=== PATIENT | male | born 1980 | race African-American/Black ===

== ENCOUNTER 2021-03-02 08:39 | Outpatient (REF) | payer OTHER, SELFPAY ==
[2021-03-02 11:15] LABS: MANUAL DIFF FLAG NO
[2021-03-02 11:26] LABS: Basophils Percent Auto 0.4 % (0-2); Eosinophils Absolute Auto 0.1 X10*3/uL (0.0-0.4); Eosinophils Percent Auto 2.4 % (0-4); Hematocrit 41.9 % (42-52); Hemoglobin 14.3 g/dl (14.0-18.0); Imm Gran Abs Auto 0.01 X10*3/uL (0.00-0.03); Imm Gran Pct Auto 0.2 % (0.0-0.4); Lymphocytes Absolute Auto 1.5 X10*3/uL (1.2-4.9); Lymphocytes Percent Auto 29.5 % (20-40); Mean Corpuscular HGB Conc 34.1 g/dl (31.0-36.0); Mean Corpuscular Hemoglobin 28.1 pg (27.0-33.0); Mean Corpuscular Volume 82.3 fL (80-98); Mean Platelet Volume 10.7 fL (9.4-12.4); Monocytes Absolute Auto 0.4 X10*3/uL (0.1-1.2); Monocytes Percent Auto 7.8 % (2-11); Neutrophils Percent Auto 59.7 % (45-73); Platelet Count 245 X10*3/uL (160-400); Red Blood Count 5.09 X10*6/uL (4.60-5.80); Red Cell Distribution Width 12.3 % (11.0-16.0)
[2021-03-02 12:25] LABS: Syphilis Screen Nonreactive (Nonreactive)
[2021-03-02 12:30] LABS: TSH reflex Free T4 0.77 uIU/mL (0.32-4.0)
[2021-03-02 12:39] LABS: Alanine Aminotransferase 32 U/L (0-40); Albumin Level 4.1 g/dL (3.5-5.0); Alkaline Phosphatase 59 U/L (39-117); Anion Gap 12 (12-20); Aspartate Amino Transferase 21 U/L (5-37); Bilirubin Total 0.5 mg/dL (0.0-1.0); Blood Urea Nitrogen 8 mg/dL (9-16); Calcium 9.2 mg/dL (8.4-10.2); Carbon Dioxide 29 mmol/L (22-29); Chloride 103 mmol/L (96-108); Cholesterol 128 mg/dL; Estimated Glomerular Filt Rate > 60; Glucose Fasting 157 mg/dL (60-99); HDL Cholesterol 41 mg/dL; LDL Cholesterol Calculated 77 mg/dl; Potassium 4.3 mmol/L (3.3-5.1); Sodium 140 mmol/L (135-145); Total Protein 7.1 g/dL (6.5-8.0); Triglycerides 53 mg/dL
[2021-03-02 12:57] LABS: CT PCR NOT DETECTED (Not Detect.); NG PCR NOT DETECTED (Not Detect.)
[2021-03-04 07:48] LABS: HBc Num1 0.04 S/CO (0.00-0.79); HIV AB/AG Nonreactive (Nonreactive); HIV Num 1 0.09 S/CO (0.00-0.99); Hepatitis B Core Antibody Nonreactive (Nonreactive); ~HepC Num1 0.08 S/CO (0.00-0.79); ~Hepatitis C Antibody Nonreactive (Nonreactive)
[2021-03-04 08:07] LABS: HBS Num1 4.61 mIU/mL (0-7.99); HBsAGNum1 0.22 S/CO (0.00-0.99); Hepatitis B Surface Antigen Negative (Negative); ~Hepatitis B Surface Antibody NONREACTIVE (Nonreactive)
== END 2021-03-02 08:40 | disposition home or self-care (01) ==
LOC: HO.HMGCLDS 08:39
PROVIDERS: PCP Family Medicine; Visit Provider Family Medicine
DX: Z00.00 Encounter for general adult medical examination without abnormal findings (principal); Z11.3 Encounter for screening for infections with a predominantly sexual mode of transmission; Z11.4 Encounter for screening for human immunodeficiency virus [HIV]
CPT/HCPCS: 80053; 80061; 84443; 85025; 86704; 86706; 86780; 86803; 87340; 87389; 87491; 87591

== ENCOUNTER 2021-05-05 10:17 | Outpatient (REF) | payer OTHER, SELFPAY ==
[2021-05-05 15:44] LABS: Folate 11.5 ng/mL (> or = 4.0); Vitamin B12 783 pg/mL (200-900)
== END 2021-05-05 10:18 | disposition home or self-care (01) ==
LOC: HO.WFDLDS 10:17
PROVIDERS: Visit Provider Internal Medicine
DX: E11.65 Type 2 diabetes mellitus with hyperglycemia (principal); L03.039 Cellulitis of unspecified toe
CPT/HCPCS: 36415; 82607; 82746

== ENCOUNTER → 2021-05-18 09:41 | Outpatient (BNVA) | payer OTHER, SELFPAY | PROVIDERS: PCP Family Medicine; Visit Provider Nurse Practitioner Family | DX: E11.40 Type 2 diabetes mellitus with diabetic neuropathy, unspecified (principal) | CPT/HCPCS: 99202 ==

== ENCOUNTER → 2021-06-29 13:40 | Outpatient (BNVA) | payer OTHER, SELFPAY | PROVIDERS: PCP Family Medicine; Visit Provider Nurse Practitioner Family | DX: E11.40 Type 2 diabetes mellitus with diabetic neuropathy, unspecified (principal) | CPT/HCPCS: 99212 ==

== ENCOUNTER → 2021-07-19 09:58 | Outpatient (BNVA) | payer OTHER, SELFPAY | PROVIDERS: PCP Family Medicine; Visit Provider Nurse Practitioner Family ==

== ENCOUNTER 2021-08-26 12:42 | Outpatient (REF) | payer OTHER, SELFPAY ==
[2021-08-26 13:48] LABS: Estimated Average Glucose 131 mg/dL; Hemoglobin A1c % 6.2 %
[2021-08-26 14:22] LABS: Anion Gap 14 (12-20); Blood Urea Nitrogen 8 mg/dL (9-16); Calcium 9.6 mg/dL (8.4-10.2); Carbon Dioxide 30 mmol/L (22-29); Chloride 101 mmol/L (96-108); Estimated Glomerular Filt Rate > 60; Glucose Random 161 mg/dL (60-115); Potassium 4.5 mmol/L (3.3-5.1); Sodium 140 mmol/L (135-145)
[2021-08-26 14:29] LABS: Microalbum/Creatinine Ratio Ur 5.6 ug/mg cr
== END 2021-08-26 12:43 | disposition home or self-care (01) ==
LOC: HO.WFDLDS 12:42
PROVIDERS: Visit Provider Family Medicine
DX: Z00.00 Encounter for general adult medical examination without abnormal findings (principal); E11.65 Type 2 diabetes mellitus with hyperglycemia; I10 Essential (primary) hypertension
CPT/HCPCS: 36415; 80048; 82043; 83036

== ENCOUNTER 2021-12-15 12:47 | Outpatient (REF) | payer OTHER, SELFPAY ==
[2021-12-15 14:06] LABS: Estimated Average Glucose 160 mg/dL; Hemoglobin A1c % 7.2 %
== END 2021-12-15 12:48 | disposition home or self-care (01) ==
LOC: HO.WFDLDS 12:47
PROVIDERS: Visit Provider Hospitalist
DX: E11.9 Type 2 diabetes mellitus without complications (principal)
CPT/HCPCS: 36415; 83036

== ENCOUNTER 2022-09-05 08:38 | Outpatient (REF) | payer OTHER, SELFPAY ==
[2022-09-05 11:41] LABS: Hemoglobin 14.3 g/dl (14.0-18.0); Mean Corpuscular Hemoglobin 28.5 pg (27.0-33.0); Mean Corpuscular Volume 83.7 fL (80.0-98.0); Mean Platelet Volume 10.9 fL (9.4-12.4); Platelet Count 244 X10*3/uL (160-400); Red Blood Count 5.02 X10*6/uL (4.60-5.80); White Blood Count 6.4 X10*3/uL (4.8-10.8)
[2022-09-05 12:02] LABS: Estimated Average Glucose 206 mg/dL; Hemoglobin A1c % 8.8 %
[2022-09-05 12:14] LABS: Alanine Aminotransferase 40 U/L (0-40); Albumin Level 4.3 g/dL (3.5-5.0); Alkaline Phosphatase 87 U/L (39-117); Anion Gap 15 (12-20); Aspartate Amino Transferase 24 U/L (5-37); Bilirubin Total 0.3 mg/dL (0.0-1.0); Blood Urea Nitrogen 12 mg/dL (9-16); Calcium 9.1 mg/dL (8.4-10.2); Carbon Dioxide 28 mmol/L (22-29); Chloride 100 mmol/L (96-108); Cholesterol 167 mg/dL; Estimated Glomerular Filt Rate > 60; Glucose Fasting 201 mg/dL (60-99); HDL Cholesterol 42 mg/dL; LDL Cholesterol Calculated 110 mg/dl; Potassium 4.4 mmol/L (3.3-5.1); Sodium 139 mmol/L (135-145); Total Protein 7.4 g/dL (6.5-8.0); Triglycerides 77 mg/dL
[2022-09-05 12:19] LABS: TSH reflex Free T4 2.11 uIU/mL (0.32-4.0)
== END 2022-09-05 08:39 | disposition home or self-care (01) ==
LOC: HO.HMGCLDS 08:38
PROVIDERS: PCP Nurse Practitioner Family; Visit Provider Hospitalist
DX: Z00.00 Encounter for general adult medical examination without abnormal findings (principal); E11.65 Type 2 diabetes mellitus with hyperglycemia
CPT/HCPCS: 36415; 80053; 80061; 83036; 84443; 85027

== ENCOUNTER 2023-04-06 09:15 | Outpatient (REF) | payer OTHER, SELFPAY ==
[2023-04-06 12:26] LABS: Estimated Average Glucose 166 mg/dL; Hemoglobin A1c % 7.4 %
[2023-04-06 12:36] LABS: Creatinine Urine 198.21 mg/dL; Microalbum/Creatinine Ratio Ur 4.5 ug/mg cr
== END 2023-04-06 09:16 | disposition home or self-care (01) ==
LOC: HO.WFDLDS 09:15
PROVIDERS: Visit Provider Nurse Practitioner Family
DX: E11.9 Type 2 diabetes mellitus without complications (principal)
CPT/HCPCS: 36415; 82043; 83036

== ENCOUNTER 2023-06-08 12:50 | Outpatient (AMB) | payer OTHER, SELFPAY ==
--- NOTE | 2023-06-08 12:52 | MHC.OFFWIV ---
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 He states he injured his back in the past. Patient Tobacco Use Status: Never used Tobacco Allergies No Known Allergies Allergy (Verified 06/08/23 12:54) Do you need a note to return to daycare/school/sports/work: Yes HPI HPI Comments History of Present Illness Details 42-year-old male who presents to the office today for sick visit. 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 He reports the pain is bilateral and radiates around to the front. Patient denies any numbness/weakness/paresthesias or pain radiating into his lower extremities. He denies any fevers or chills. He denies any urinary/bowel incontinence or retention. He denies any saddle anesthesias. 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 Current occupational exposures/hazards: No Review of Systems Const All systems reviewed & are unremarkable except as noted in HPI and below Reports no additional complaints Eyes Reports no additional complaints ENT Reports no additional complaints Card Reports no additional complaints Resp Reports no additional complaints GI Reports no additional complaints Reports no additional complaints Musc Reports back pain Skin/Breast Reports system reviewed and no additional complaints, except as documented Neuro Reports no additional complaints Psych Reports no additional complaints Endo Reports no additional complaints Catracho/Lymph Reports no additional complaints Aller/Immun Reports no additional complaints Physical Exam Vital Signs: Last Vital Signs Pulse 80 06/08/23 12:56 BP 130/88 06/08/23 12:56 Pulse Ox 98 06/08/23 12:56 Oxygen Delivery Method Room Air 06/08/23 12:56 Const General: cooperative, healthy appearing, comfortable, no acute distress, well developed, alert, awake and Physically active Orientation/consciousness: patient oriented x3 HEENT Head: Yes normal to inspection Ears: hearing grossly normal bilaterally General nose exam: Normal external nose present Face and sinus: Yes normal facial exam Resp Effort & Inspection: normal respiratory effort, able to speak in complete sentences and no respiratory distress Auscultation: clear to auscultation bilaterally Cardio Rate: regular rate Rhythm: regular rhythm Heart sounds: no gallops, no murmurs and no rubs Back/Spine/Pelvis Other: Tenderness to palpation of bilateral sacroiliac joints. Negative straight leg raise bilaterally. Palpable muscle spasms of paraspinal musculature bilaterally. Skin General skin exam: no rashes or lesions noted Neuro General: patient oriented x3 Cranial nerves: Yes CN's II-XII intact bilaterally Cognition (Neuro): normal cognition Gait exam (Neuro): Normal gait present Motor exam (neuro): 5/5 motor strength present throughout Assessment & Plan Assessment & Plan (1) Lumbosacral pain: Code(s): M54.50 - Low back pain, unspecified Plan This is a 42-year-old male who presents to the office today with low back pain following a twisting injury. History and physical most consistent with a lumbosacral sprain/strain versus sacroiliitis. No red flag or radicular symptoms to suggest cauda equina syndrome or radiculopathy. Recommended rest/activity modification, PO Tylenol/Advil, [id number] lidocaine patches, and PO methocarbamol 500 mg 3 times daily as needed for muscle spasms. Patient advised follow-up here or go directly to the emergency room for any concerning symptoms. Patient verbalizes understanding and he is in agreement with the plan. Medications: New methocarbamol 500 mg PO TID PRN 10 tabs 0RF muscle spasm Coding Level of Care Code New Pt Level 3 (43585) Diagnoses Lumbosacral pain M54.50
[2023-06-08 12:56] VITALS: BP 130/88; PULSE 80; O2SAT 98
== END 2023-06-08 13:58 | disposition home or self-care (01) ==
PROVIDERS: PCP Nurse Practitioner Family; Visit Provider Physician Assistant Medical
DX: M54.50 Low back pain, unspecified (principal)
CPT/HCPCS: 99203

== ENCOUNTER 2023-07-02 09:12 | Outpatient (AMB) | payer OTHER, SELFPAY ==
--- NOTE | 2023-07-02 10:22 | AM.OFFWIN_ITS ---
Intake Vital Signs 07/02/23 10:24 Weight 243 lb BP 120/90 H Blood Pressure Location Rt brachial Position Sitting Pulse 88 Pulse Source Pulse Oximeter Pulse Oximetry (%) 99 Oxygen Delivery Method Room Air Intake Visit Reasons: EP, Scalp discomfort Intake Note: Patient here for bumps on scalp for about 2 weeks and he thought they would go away but yesterday they opened up and started to bleed. Patient Tobacco Use Status: Never used Tobacco Allergies No Known Allergies Allergy (Verified 07/02/23 11:18) Medication List - Last Reconciled 07/02/23 by Yadiel Cadet MD atorvastatin 20 mg PO BEDTIME 30 days blood pressure test kit-large As directed blood sugar diagnostic (FreeStyle Lite Strips) DX: E11.9, test blood sugar once a day in AM before eating, 90 days blood-glucose meter (FreeStyle Lite Meter kit) DX: E11.9, test blood sugar once a day in AM before eating, duration 999 days duloxetine 60 mg PO DAILY 30 days glipizide 5 mg PO BID lancets (FreeStyle Lancets) As directed lancets (Assure Jose Plus) DX: E11.65. Use once a day to test blood sugars, 90 day supply lisinopril 10 mg PO DAILY 30 days metformin 500 mg PO BID 90 days methocarbamol 500 mg PO TID PRN Do you need a note to return to daycare/school/sports/work: No HPI EP, Scalp discomfort HPI Details 42-year-old male presents to the office for a sick visit. Patient is complaining of irritation in his scalp. Symptoms started after he started using a razor. 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 A few nodules seen at the base of the hair follicles. Assessment & Plan Assessment & Plan (1) Cellulitis: Code(s): L03.90 - Cellulitis, unspecified Plan: Antibiotics called in. If Symptoms do not improve to follow-up here. Coding Level of Care Code Est Pt Level 3 (05267) Diagnoses Cellulitis L03.90
[2023-07-02 10:24] VITALS: BP 120/90; PULSE 88; O2SAT 99
== END 2023-07-02 12:03 | disposition home or self-care (01) ==
PROVIDERS: PCP Nurse Practitioner Family; Visit Provider Internal Medicine
DX: L03.90 Cellulitis, unspecified (principal)
CPT/HCPCS: 99213

== ENCOUNTER 2023-08-14 08:45 | Outpatient (AMB) | payer OTHER, SELFPAY ==
[2023-08-14 09:02] VITALS: BP 124/70; PULSE 84; RESP 12; TEMP 36.2; O2SAT 99; BMI 40.3
--- NOTE | 2023-08-14 09:02 | A.OFFPC_ITS ---
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 Use once a day to test blood sugars, 90 day supply lancets (FreeStyle Lancets) As directed lisinopril 10 mg PO DAILY metformin 500 mg PO BID 90 days Tobacco use date assessed: 10/05/22 Dental Screening Dental Screen Date: 08/14/23 Did you have a dental visit in the last 12 months?: No Did you have a dental problem in the last 6 months where you did not have access to dental care?: No Was dental information given to patient?: Patient has dentist HPI HPI Comments History of Present Illness Details 42-year-old male presents for hypertensi on and diabetes follow-up. He is on lisinopril, metformin, and glipizide which he notes he has been taking as prescribed. He states his random glucose has in the 120s and 130s; he has not been regularly checking his fasting glucose. His FBG was 120 this morning. He notes he has been making healthy dietary choices. He has been working a lot and has not had time to exercise. No acute symptoms at this time. His LDL was 110 at his last visit in March. Atorvastatin was ordered. Lipid panel was also ordered for. He was encouraged to get fasting blood work done before his next visit. However, he did not get blood work done. He notes he has been followed by Ophthalmology for eye exam every 6 months. His last eye exam was 01/2023. He notes he will call to schedule an appointment for this next visit. [facility] Medical History Paronychia Retinal hemorrhage Neuropathy in diabetes Diabetes type 2, uncontrolled Obesity, Class II, BMI 35-39.9 Surgical History No history of previous surgery Family History Father HIV (human immunodeficiency virus infection) Mother Cervical cancer HIV (human immunodeficiency virus infection) Social History Housing: House Alcohol intake: never Patient Tobacco Use Status: Never used Tobacco e-Cigarette/Vaping Use: Never Used service: No Current occupational status: employed Current occupation: [employer] Current occupational exposures/hazards: No Cognitive needs: No Hearing needs: No Vision needs: No Questionnaire Thrive Questionnaire Date Thrive assessed: 10/05/22 Review of Systems Const Details: Const Denies chills, Denies fatigue, Denies fever(s), Denies headache(s) and Denies weakness ENT Denies dizziness and Denies headache(s) Card Denies chest pain, Denies lightheadedness, Denies dyspnea and Denies other (Palpitations) Resp Denies cough, Denies dyspnea, Denies wheezing and Denies other ( shortness of breath) GI Denies abdominal pain, Denies melena, Denies hematochezia, Denies change in bowel habits, Denies dyspepsia and Denies nausea Denies hematuria and Denies dysuria Musc Denies abnormal gait, Denies myalgias, Denies arthralgias, Denies numbness and Denies tingling Skin/Breast Denies rash, Denies unusual bruising and Denies wounds Neuro Denies abnormal gait, Denies dizziness, Denies headache(s), Denies memory loss, Denies numbness, Denies Sensory deficit (Neuro), Denies tingling and Denies weakness Psych Denies anxiety, Denies depression, Denies memory loss Endo Denies cold intolerance, Denies fatigue, Denies heat intolerance, Denies polydipsia and Denies polyuria Aller/Immun Denies wheezing Physical exam (Primary Care) Vital Signs: Last Vital Signs Temp 97.2 F 08/14/23 09:02 Pulse 84 08/14/23 09:02 Resp 12 08/14/23 09:02 BP 124/70 08/14/23 09:02 Pulse Ox 99 08/14/23 09:02 Oxygen Delivery Method Room Air 08/14/23 09:02 BMI result Body Mass Index 40.3 Tobacco/Smoking Status: Tobacco use Status Tobacco use date assessed 10/05/22 08/14/23 09:12 Patient Tobacco Use Status Never used Tobacco 08/14/23 09:12 e-Cigarette/Vaping Use Never Used 08/14/23 09:12 Thrive Assessment: Date of Thrive Assessment Date Thrive assessed 10/05/22 08/14/23 09:12 Const Other: General: no acute distress and well developed Nutritional Appearance: well nourished Orientation/consciousness: patient oriented x3 HENMT Head: Yes normocephalic and Yes atraumatic Eyes General: appearance normal, both eyes and all related structures Pupils: Equal, round and reactive pupils present EOM: EOMs intact bilaterally Resp Effort & Inspection: normal respiratory effort Auscultation: clear to auscultation bilaterally Cardio Rate: regular rate Rhythm: regular rhythm Heart sounds: S1 normal heart sound present, S2 normal heart sound present, no gallops, no murmurs and no rubs GI Palpation (GI): No Abdominal aortic bruit present, Soft to palpation, nontender, No hepatosplenomegaly present and No Rebound tenderness present Auscultation: normal bowel sounds General: Yes no CVA tenderness Back/Spine/Pelvis Back: no CVA tenderness Cervical Spine: cervical ROM normal and No Cervical spine tenderness Thoracic/Lumbar Spine: thoraco-lumbar ROM normal, No pain with thoraco-lumbar ROM, No thoracic spinal tenderness and No lumbar spinal tenderness Extrem General: Yes normal to inspection, No edema and No calf tenderness Skin General: warm and dry. Normal skin color. Normal skin turgor Lesions: no lesions Rashes: no rashes Trauma: no lacerations or abrasions Wounds: no wounds Nails: normal Neuro General: patient oriented x3, gait normal and no focal neuro deficit Cranial nerves: Yes Equal, round and reactive pupils present Cognition (Neuro): normal cognition Gait exam (Neuro): Normal gait present Sensory Exam: No Sensory deficit (Neuro) Psych Appearance: grossly normal Affect: normal affect Attitude: cooperative Thought process: Normal thought process present Results AMB Hemoglobin A1c AMB Hemoglobin A1c 8.0 % Last Edit by Jenny Parra MA on 08/14/23 09:19 Results Reviewed Results Reviewed: Laboratory Last Values Hgb A1c (Clinic) 8.0 % (4.0-6.0) H 08/14/23 09:18 Assessment and Plan Assessment & Plan (1) Hypertension: Code(s): I10 - Essential (primary) hypertension Qualifiers: Hypertension type: primary hypertension Qualified Code(s): I10 - Essential (primary) hypertension Plan: Blood pressure is 124/70, within goal of less than 130/80 Continue with current treatment regimen Low-sodium diet encouraged Follow-up in 3 months or return sooner with symptoms or concerns Verbalized understanding and agreed with treatment plan. (2) Diabetes type 2, uncontrolled: Code(s): E11.65 - Type 2 diabetes mellitus with hyperglycemia Plan: A1c today is 8.0%, above goal of less than 7.0%. Previous A1c was 7.4% He admits to taking his medications as prescribed. Denies exercise Will increase metformin to 150 mg twice a day. Take as prescribed Continue to take glipizide as prescribed ADA diet and routine exercise encouraged Referred to dietitian/gluer machine operator Advised to get lipid panel blood work done as soon as possible Follow-up in 3 months or return sooner with symptoms or concerns Verbalized understanding and agreed with treatment plan. (3) Morbid obesity with BMI of 40.0-44.9, adult: Code(s): E66.01 - Morbid (severe) obesity due to excess calories; Z68.41 - Body mass index [BMI] 40.0-44.9, adult Plan: He has gained 14 lb since his last visit 4 months ago. His his current BMI is 40.3 Routine exercise encouraged Referred to gluer machine operator/dietitian Follow-up with symptoms or concerns Verbalized understanding and agreed with treatment plan. Orders: Referrals Nutrition/Dietitian Referral E11.65 - Type 2 diabetes mellitus with hyperglycemia, E66.01 - Morbid (severe) obesity due to excess calories, Z68.41 - Body mass index [BMI] 40.0-44.9, adult Medications: New lisinopril 10 mg PO DAILY 90 tabs 1RF 90 days metformin 850 mg PO BID 180 tabs 3RF 90 days Changed From lancets (FreeStyle Lancets) As directed 100 ea 3RF DX: E11.9, test blood sugar once a day, 90 day E11.9 - Type 2 diabetes mellitus without complications To lancets (FreeStyle Lancets) As directed E11.9 - Type 2 diabetes mellitus without complications Refilled duloxetine 60 mg PO DAILY 30 caps 3RF 30 days glipizide 5 mg PO BID 180 tabs 3RF Discontinued metformin Discontinued Reason: Doctor's Order 500 mg PO BID 180 tabs 2RF 90 days E11.65 - Type 2 diabetes mellitus with hyperglycemia Coding Level of Care Code Est Pt Level 3 (85257) Diagnoses Primary hypertension I10 Hypertension type: primary hypertension Diabetes type 2, uncontrolled E11.65 Morbid obesity with BMI of 40.0-44.9, adult E66.01; Z68.41
== END 2023-08-14 09:36 | disposition home or self-care (01) ==
PROVIDERS: PCP Nurse Practitioner Family; Visit Provider Nurse Practitioner Family
DX: I10 Essential (primary) hypertension (principal); E11.65 Type 2 diabetes mellitus with hyperglycemia; E66.01 Morbid (severe) obesity due to excess calories; Z68.41 Body mass index [BMI] 40.0-44.9, adult
CPT/HCPCS: 99213

== ENCOUNTER 2023-12-31 07:35 | Outpatient (AMB) | payer OTHER, SELFPAY ==
--- NOTE | 2023-12-31 07:47 | MHC.PC.OV ---
Vital Signs 12/31/23 07:48 Height 5 ft 7 in Weight 255 lb BMI 39.9 BP 120/82 Blood Pressure Location Lt brachial Position Sitting Pulse 88 Pulse Source Pulse Oximeter Pulse Oximetry (%) 98 Oxygen Delivery Method Room Air Intake Visit Reasons: PE-Transfer of care from [facility]/ Diabetic Intake Note: Pt is here today as a transfer patient to eat care/ PE Allergies No Known Allergies Allergy (Verified 12/31/23 07:47) Medication List - Last Reconciled 12/31/23 by Rosita Cho MD blood pressure test kit-large As directed blood sugar diagnostic (FreeStyle Lite Strips) DX: E11.9, test blood sugar once a day in AM before eating, 90 days blood-glucose meter (FreeStyle Lite Meter kit) DX: E11.9, test blood sugar once a day in AM before eating, duration 999 days duloxetine 60 mg PO DAILY 30 days glipizide 5 mg PO BID lancets (Assure Jose Plus) DX: E11.65. Use once a day to test blood sugars, 90 day supply lancets (FreeStyle Lancets) As directed lisinopril 10 mg PO DAILY 90 days metformin 850 mg PO BID 90 days Tobacco use date assessed: 12/31/23 Dental Screening Dental Screen Date: 12/31/23 Did you have a dental visit in the last 12 months?: No Was dental information given to patient?: Patient has dentist HPI PE-Transfer of care from [facility]/ Diabetic HPI Details Pt presents for PE transfer from [facility]. Past medical history includes type 2 diabetes hyperlipidemia and hypertension and neuropathy? DM. Patient reports checking his fasting blood glucose occasionally with the readings between 120-140. He works a 2nd shift and frequently skips the mid day meal. [facility] Medical History (Updated 12/31/23 @ 09:48 by Rosita Cho MD) Paronychia Retinal hemorrhage Neuropathy in diabetes Obesity, Class II, BMI 35-39.9 Surgical History No history of previous surgery Family History Father HIV (human immunodeficiency virus infection) Mother Cervical cancer HIV (human immunodeficiency virus infection) Social History (Updated 12/31/23 @ 08:11 by Rosita Cho MD) Household Members Other:: , works as [employer], 1 son 14 yo son Housing: House Alcohol intake: never Patient Tobacco Use Status: Never used Tobacco e-Cigarette/Vaping Use: Never Used service: No Current occupational status: employed 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 1. Little interest or pleasure in doing things: not at all 2. Feeling down, depressed, or hopeless: not at all 3. Trouble falling or staying asleep, or sleeping too much: more than half the days 4. Feeling tired or having little energy: not at all 5. Poor appetite or overeating: not at all 6. Feeling bad about yourself - or that you are a failure or have let yourself or your family down: not at all 7. Trouble concentrating on things, such as reading the newspaper or watching television: not at all 8. Moving or speaking so slowly that other people could have noticed. Or the opposite - being so fidgety or restless that you have been moving around a lot more than usual: not at all 9. Thoughts that you would be better off or of hurting yourself in some way: not at all Total score: 2 Depression Screening Interpretation: Negative Depression Screening Done: Yes Source: Developed by Drs. Rajeev Lynch, Betty Perez, James Ahn and colleagues, with an educational clay from [employer]. Thrive Questionnaire Date Thrive assessed: 12/31/23 I am a: Patient What is your living situation today?: I have a steady place to live Within the past 12 months, did the food you bought not last and you didn't have the money to get more?: Never true Within the past 12 months, did you worry whether your food would run out before you got money to buy more?: Never true Do you have trouble paying for medicines?: No Do you have trouble getting transportation to medical appointments?: No Do you have trouble paying your heating and electricity bill?: No Do you have trouble taking care of your child, family member or friend?: No Do you have trouble with day-to-day activities such as bathing, preparing meals, shopping, managing finances, etc.?: No Are you currently unemployed and looking for a job?: No Are you interested in more education?: No THRIVE Score: 0 AUDIT C Alcohol Use Questionnaire (AUDIT-C) 1. How often do you have a drink containing alcohol?: Never Total Score: 0 LINH-7 AMB Questionnaire LINH-7 Date LINH - 7 assessed: 12/31/23 Feeling nervous, anxious, or on edge: 0 = Not at all Not being able to stop or control worryin = Not at all Worrying too much about different things: 0 = Not at all Trouble relaxin = Not at all Being so restless that it is hard to sit still: 0 = Not at all Becoming easily annoyed or irritable: 0 = Not at all Feeling afraid as if something awful might happen: 0 = Not at all Total LINH-7 score (0-4 normal; 5-9 mild; 10-14 moderate; 15-21 severe): 0 Source: Developed by Drs. Rajeev Lynch, Betty Perez, James Ahn and colleagues, with an educational clay from [employer]. Review of Systems Const All systems reviewed & are unremarkable except as noted in HPI and below Reports no additional complaints Eyes Reports no additional complaints ENT Reports no additional complaints Card Reports no additional complaints Resp Reports no additional complaints GI Reports no additional complaints Reports no additional complaints Physical exam (Primary Care) Vital Signs: Last Vital Signs Pulse 88 12/31/23 07:48 BP 120/82 12/31/23 07:48 Pulse Ox 98 12/31/23 07:48 Oxygen Delivery Method Room Air 12/31/23 07:48 BMI result Body Mass Index 39.9 Tobacco/Smoking Status: Tobacco use Status Tobacco use date assessed 12/31/23 12/31/23 07:50 Patient Tobacco Use Status Never used Tobacco 12/31/23 07:50 e-Cigarette/Vaping Use Never Used 12/31/23 07:50 PHQ-9: PHQ-9 Score PHQ-9: Total score 2 12/31/23 07:54 Depression Screening Interpretation: Negative Thrive Assessment: Date of Thrive Assessment Date Thrive assessed 12/31/23 12/31/23 07:54 Const General: no acute distress HENMT Head: Yes normal to inspection Ears: hearing grossly normal bilaterally Face and sinus: Yes normal facial exam Mouth: Normal oral and palatal mucosa present Throat: Yes posterior oropharynx normal Eyes General: appearance normal, both eyes and all related structures Neck Neck: Yes no lymphadenopathy and Yes supple Resp Effort & Inspection: normal respiratory effort Auscultation: clear to auscultation bilaterally Cardio Rhythm: regular rhythm Heart sounds: S1 normal heart sound present and S2 normal heart sound present GI Palpation (GI): Soft to palpation Percussion: Yes normal to percussion Auscultation: normal bowel sounds Results AMB Hemoglobin A1c AMB Hemoglobin A1c 6.7 % Last Edit by Sherice Brizuela CMA on 12/31/23 07:53 Results Reviewed Results Reviewed: Laboratory Last Values Hgb A1c (Clinic) 6.7 % (4.0-6.0) H 12/31/23 07:46 Assessment and Plan Assessment & Plan (1) Neuropathy in diabetes: Code(s): E11.40 - Type 2 diabetes mellitus with diabetic neuropathy, unspecified Plan: Continue duloxetine (2) DM type 2 (diabetes mellitus, type 2): Code(s): E11.9 - Type 2 diabetes mellitus without complications Plan: A1c is 6.7, ADA diet eating small frequent meals regular exercise at least 5 times a week weight loss discussed with the patient. Ozempic 0.25 weekly will be added to current medications. Patient was advised to record his glucose readings and follow-up in 1 month (3) Adult general medical exam: Code(s): Z00.00 - Encounter for general adult medical examination without abnormal findings Plan: Well-balanced diet regular physical activity discussed with the patient referred to GI for screening colonoscopy (4) Hypertension: Code(s): I10 - Essential (primary) hypertension Qualifiers: Hypertension type: primary hypertension Qualified Code(s): I10 - Essential (primary) hypertension Plan: Continue lisinopril (5) Elevated LDL cholesterol level: Code(s): E78.00 - Pure hypercholesterolemia, unspecified Plan: Continue statin Orders: Orders Complete Blood Count Auto Diff 1 Month E11.40 - Type 2 diabetes mellitus with diabetic neuropathy, unspecified, E11.65 - Type 2 diabetes mellitus with hyperglycemia, E66.01 - Morbid (severe) obesity due to excess calories, Z68.41 - Body mass index [BMI] 40.0-44.9, adult Lipid Panel 1 Month E11.40 - Type 2 diabetes mellitus with diabetic neuropathy, unspecified, E11.65 - Type 2 diabetes mellitus with hyperglycemia, E66.01 - Morbid (severe) obesity due to excess calories, Z68.41 - Body mass index [BMI] 40.0-44.9, adult Microalbumin, Random (w Creat) 1 Month E11.40 - Type 2 diabetes mellitus with diabetic neuropathy, unspecified, E11.65 - Type 2 diabetes mellitus with hyperglycemia, E66.01 - Morbid (severe) obesity due to excess calories, Z68.41 - Body mass index [BMI] 40.0-44.9, adult AMB Hemoglobin A1c Today E11.65 - Type 2 diabetes mellitus with hyperglycemia Comprehensive [place]. Panel Fast 1 Month E11.40 - Type 2 diabetes mellitus with diabetic neuropathy, unspecified, E11.65 - Type 2 diabetes mellitus with hyperglycemia, E66.01 - Morbid (severe) obesity due to excess calories, Z68.41 - Body mass index [BMI] 40.0-44.9, adult Referrals Gastroenterology Referral Z00.00 - Encounter for general adult medical examination without abnormal findings Medications: New semaglutide (Ozempic) for 4 weeks 0.25 mg (0.368 mL) subcut QWEEK 9 mL 1RF Changed From atorvastatin 20 mg PO BEDTIME 30 tabs 3RF 30 days To atorvastatin 20 mg PO BEDTIME 90 tabs 3RF 90 days Refilled lisinopril 10 mg PO DAILY 90 tabs 3RF 90 days Coding Level of Care Code Est Pt Prev Care 40-64y(56273) Diagnoses Neuropathy in diabetes E11.40 DM type 2 (diabetes mellitus, type 2) E11.9 Adult general medical exam Z00.00 Primary hypertension I10 Hypertension type: primary hypertension Elevated LDL cholesterol level E78.00
[2023-12-31 07:48] VITALS: BP 120/82; PULSE 88; O2SAT 98; BMI 39.9
== END 2023-12-31 09:51 | disposition home or self-care (01) ==
PROVIDERS: PCP Nurse Practitioner Family; Visit Provider Internal Medicine
DX: Z00.00 Encounter for general adult medical examination without abnormal findings (principal); E11.40 Type 2 diabetes mellitus with diabetic neuropathy, unspecified; E11.65 Type 2 diabetes mellitus with hyperglycemia; I10 Essential (primary) hypertension; E78.00 Pure hypercholesterolemia, unspecified
CPT/HCPCS: 83036; 99396

== ENCOUNTER 2024-02-06 11:06 | Outpatient (AMB) | payer OTHER, SELFPAY ==
--- NOTE | 2024-02-06 11:33 | A.OFFPC_ITS ---
Vital Signs 02/06/24 11:38 Height 5 ft 7 in Weight 250 lb BMI 39.2 BP 116/68 Blood Pressure Location Rt brachial Position Sitting Pulse 81 Pulse Source Pulse Oximeter Pulse Oximetry (%) 98 Oxygen Delivery Method Room Air Intake Visit Reasons: 1 month follow up Information Interpreted: non-clinical & clinical Accompanied by: Self / Same As Patient Allergies No Known Allergies Allergy (Verified 02/06/24 11:34) Medication List - Last Reconciled 02/06/24 by Rosita Cho MD atorvastatin 20 mg PO BEDTIME 90 days blood pressure test kit-large As directed blood sugar diagnostic (FreeStyle Lite Strips) DX: E11.9, test blood sugar once a day in AM before eating, 90 days blood-glucose meter (FreeStyle Lite Meter kit) DX: E11.9, test blood sugar once a day in AM before eating, duration 999 days duloxetine 60 mg PO DAILY glipizide 5 mg PO BID lancets (Assure Jose Plus) DX: E11.65. Use once a day to test blood sugars, 90 day supply lancets (FreeStyle Lancets) As directed lisinopril 10 mg PO DAILY 90 days metformin 850 mg PO BID 90 days semaglutide (Ozempic) 0.25 mg (0.368 mL) subcut QWEEK Tobacco use date assessed: 02/06/24 Dental Screening Dental Screen Date: 02/06/24 Did you have a dental visit in the last 12 months?: No Did you have a dental problem in the last 6 months where you did not have access to dental care?: No Was dental information given to patient?: No HPI 1 month follow up HPI Details Patient presents for the follow-up of type 2 diabetes hyperlipidemia hypertension stable on medications. Patient has been tolerating 0.25 mg of Ozempic weekly. 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 1. Little interest or pleasure in doing things: not at all 2. Feeling down, depressed, or hopeless: not at all 3. Trouble falling or staying asleep, or sleeping too much: more than half the days 4. Feeling tired or having little energy: not at all 5. Poor appetite or overeating: not at all 6. Feeling bad about yourself - or that you are a failure or have let yourself or your family down: not at all 7. Trouble concentrating on things, such as reading the newspaper or watching television: not at all 8. Moving or speaking so slowly that other people could have noticed. Or the opposite - being so fidgety or restless that you have been moving around a lot more than usual: not at all 9. Thoughts that you would be better off or of hurting yourself in some way : not at all Total score: 2 Depression Screening Interpretation: Negative Depression Screening Done: Yes Source: Developed by Drs. Rajeev Lynch, Betty Perez, James Ahn and colleagues, with an educational clay from [employer]. Thrive Questionnaire Date Thrive assessed: 12/31/23 AUDIT C Alcohol Use Questionnaire (AUDIT-C) 1. How often do you have a drink containing alcohol?: Never Total Score: 0 LINH-7 AMB Questionnaire LINH-7 Date LINH - 7 assessed: 02/06/24 Feeling nervous, anxious, or on edge: 0 = Not at all Not being able to stop or control worryin = Not at all Worrying too much about different things: 0 = Not at all Trouble relaxin = Not at all Being so restless that it is hard to sit still: 0 = Not at all Becoming easily annoyed or irritable: 0 = Not at all Feeling afraid as if something awful might happen: 0 = Not at all Total LINH-7 score (0-4 normal; 5-9 mild; 10-14 moderate; 15-21 severe): 0 Source: Developed by Drs. Rajeev Lynch, Betty Perez, James Ahn and colleagues, with an educational clay from [employer]. Review of Systems Const All systems reviewed & are unremarkable except as noted in HPI and below Reports no additional complaints Eyes Reports no additional complaints ENT Reports no additional complaints Resp Reports no additional complaints GI Reports no additional complaints Reports no additional complaints Physical exam (Primary Care) Vital Signs: Last Vital Signs Pulse 81 02/06/24 11:38 BP 116/68 02/06/24 11:38 Pulse Ox 98 02/06/24 11:38 Oxygen Delivery Method Room Air 02/06/24 11:38 BMI result Body Mass Index 39.2 Tobacco/Smoking Status: Tobacco use Status Tobacco use date assessed 02/06/24 02/06/24 11:37 Patient Tobacco Use Status Never used Tobacco 02/06/24 11:37 e-Cigarette/Vaping Use Never Used 02/06/24 11:37 PHQ-9: PHQ-9 Score PHQ-9: Total score 2 02/06/24 11:37 Depression Screening Interpretation: Negative Thrive Assessment: Date of Thrive Assessment Date Thrive assessed 12/31/23 02/06/24 11:37 Const General: no acute distress HENMT Ears: hearing grossly normal bilaterally Neck Neck: Yes no lymphadenopathy and Yes supple Resp Effort & Inspection: normal respiratory effort Auscultation: clear to auscultation bilaterally Cardio Rhythm: regular rhythm Heart sounds: S1 normal heart sound present and S2 normal heart sound present GI Inspection: Yes normal to inspection Palpation (GI): Soft to palpation Percussion: Yes normal to percussion Assessment and Plan Assessment & Plan (1) DM type 2 (diabetes mellitus, type 2): Code(s): E11.9 - Type 2 diabetes mellitus without complications Plan: ADA diet increase physical activity weight loss discussed with the patient. He will increase Ozempic to 0.5 mg weekly and decrease glipizide to 2.5 mg twice a day. Patient will continue metformin. He will have a fasting blood work today and follow-up in 3 months (2) Morbid obesity with BMI of 40.0-44.9, adult: Code(s): E66.01 - Morbid (severe) obesity due to excess calories; Z68.41 - Body mass index [BMI] 40.0-44.9, adult Plan: weight loss discussed with pt (3) Hypertension: Code(s): I10 - Essential (primary) hypertension Qualifiers: Hypertension type: primary hypertension Qualified Code(s): I10 - Essential (primary) hypertension Plan: cont Lisinopril (4) Hyperlipidemia: Code(s): E78.5 - Hyperlipidemia, unspecified Plan: cont statin Orders: Orders Hemoglobin A1c 3 Months E11.9 - Type 2 diabetes mellitus without complications, E66.01 - Morbid (severe) obesity due to excess calories, Z68.41 - Body mass index [BMI] 40.0-44.9, adult Comprehensive [place]. Panel Fast 3 Months E11.9 - Type 2 diabetes mellitus without complications, E66.01 - Morbid (severe) obesity due to excess calories, Z68.41 - Body mass index [BMI] 40.0-44.9, adult Lipid Panel 3 Months E11.9 - Type 2 diabetes mellitus without complications, E66.01 - Morbid (severe) obesity due to excess calories, Z68.41 - Body mass index [BMI] 40.0-44.9, adult Microalbumin, Random (w Creat) 3 Months E11.9 - Type 2 diabetes mellitus without complications, E66.01 - Morbid (severe) obesity due to excess calories, Z68.41 - Body mass index [BMI] 40.0-44.9, adult Medications: Changed From semaglutide (Ozempic) for 4 weeks 0.25 mg (0.368 mL) subcut QWEEK 9 mL 1RF To semaglutide (Ozempic) for 4 weeks 0.5 mg (0.736 mL) subcut QWEEK 9 mL 1RF Coding Level of Care Code Est Pt Level 4 (55292) Diagnoses DM type 2 (diabetes mellitus, type 2) E11.9 Morbid obesity with BMI of 40.0-44.9, adult E66.01; Z68.41 Primary hypertension I10 Hypertension type: primary hypertension Hyperlipidemia E78.5
[2024-02-06 11:38] VITALS: BP 116/68; PULSE 81; O2SAT 98; BMI 39.2
== END 2024-02-06 12:05 | disposition home or self-care (01) ==
PROVIDERS: PCP Nurse Practitioner Family; Visit Provider Internal Medicine
DX: E11.9 Type 2 diabetes mellitus without complications (principal); E66.01 Morbid (severe) obesity due to excess calories; Z68.41 Body mass index [BMI] 40.0-44.9, adult; I10 Essential (primary) hypertension; E78.5 Hyperlipidemia, unspecified
CPT/HCPCS: 99214

== ENCOUNTER 2024-02-06 11:54 | Outpatient (REF) | payer OTHER, SELFPAY ==
[2024-02-06 13:27] LABS: MANUAL DIFF FLAG NO
[2024-02-06 13:30] LABS: Basophils Percent Auto 0.6 % (0-2); Eosinophils Absolute Auto 0.5 X10*3/uL (0.0-0.4); Eosinophils Percent Auto 7.3 % (0-4); Hematocrit 39.2 % (42.0-52.0); Hemoglobin 13.4 g/dl (14.0-18.0); Imm Gran Abs Auto 0.05 X10*3/uL (0.00-0.03); Imm Gran Pct Auto 0.7 % (0.0-0.4); Lymphocytes Absolute Auto 2.2 X10*3/uL (1.2-4.9); Lymphocytes Percent Auto 31.2 % (20-40); Mean Corpuscular HGB Conc 34.2 g/dl (31.0-36.0); Mean Corpuscular Hemoglobin 28.5 pg (27.0-33.0); Mean Corpuscular Volume 83.2 fL (80.0-98.0); Monocytes Absolute Auto 0.5 X10*3/uL (0.1-1.2); Monocytes Percent Auto 7.7 % (2-11); Neutrophils Absolute Auto 3.7 x10*3/uL (2.0-8.3); Neutrophils Percent Auto 52.5 % (45-73); Platelet Count 259 X10*3/uL (160-400); Red Blood Count 4.71 X10*6/uL (4.60-5.80); Red Cell Distribution Width 12.8 % (11.0-16.0)
[2024-02-06 13:46] LABS: Alanine Aminotransferase 44 U/L (0-40); Albumin Level 4.3 g/dL (3.5-5.0); Alkaline Phosphatase 66 U/L (39-117); Anion Gap 12 (12-20); Aspartate Amino Transferase 25 U/L (5-37); Bilirubin Total 0.4 mg/dL (0.0-1.0); Blood Urea Nitrogen 9 mg/dL (9-16); Calcium 10.2 mg/dL (8.4-10.2); Carbon Dioxide 27 mmol/L (22-29); Chloride 101 mmol/L (96-108); Cholesterol 86 mg/dL (<200); Estimated Glomerular Filt Rate > 60; Glucose Fasting 98 mg/dL (60-99); HDL Cholesterol 34 mg/dL (>40); LDL Cholesterol Calculated 43 mg/dL (<100); Potassium 4.4 mmol/L (3.3-5.1); Sodium 136 mmol/L (135-145); Total Protein 7.6 g/dL (6.5-8.0); Triglycerides 48 mg/dL (<150)
[2024-02-06 14:04] LABS: Creatinine Urine 151.25 mg/dL; Microalbum/Creatinine Ratio Ur 5.9 ug/mg cr (<30)
== END 2024-02-06 11:55 | disposition home or self-care (01) ==
LOC: HO.HMGCLDS 11:54
PROVIDERS: PCP Internal Medicine; Visit Provider Internal Medicine
DX: E11.65 Type 2 diabetes mellitus with hyperglycemia (principal); E11.40 Type 2 diabetes mellitus with diabetic neuropathy, unspecified; E66.01 Morbid (severe) obesity due to excess calories; Z68.41 Body mass index [BMI] 40.0-44.9, adult
CPT/HCPCS: 36415; 80053; 80061; 82043; 82570; 85025

== ENCOUNTER 2024-03-12 08:06 | Outpatient (AMB) | payer OTHER, SELFPAY ==
--- NOTE | 2024-03-12 08:28 | A.OFFVIS_ITS ---
Vital Signs 03/12/24 08:29 Height 5 ft 7 in Weight 230 lb BMI 36.0 BP 120/77 Blood Pressure Location Lt brachial Position Sitting Pulse 91 Intake Visit Reasons: Colonoscopy Screening Intake Note: Patient new consult for 1st pre colonoscopy screening Patient denies any GI issues. 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 Use once a day to test blood sugars, 90 day supply lancets (FreeStyle Lancets) As directed lisinopril 10 mg PO DAILY 90 days metformin 850 mg PO BID 90 days semaglutide (Ozempic) 0.5 mg (0.736 mL) subcut QWEEK HPI Comments Details: A 43 y/o diabetic male referred for index screening-managing blood sugars No GI family hx is known-both parents at young age Appt is very good, no issues with acid No bowel issues No cardiac or respiratory issues No nausea, vomiting, hematemesis, hematochezia fever chills [facility] Medical History (Updated 03/12/24 @ 09:18 by Kathryn Fitzpatrick PA-C) Paronychia Retinal hemorrhage Neuropathy in diabetes Obesity, Class II, BMI 35-39.9 Surgical History History of eye surgery No history of previous surgery Family History Father HIV (human immunodeficiency virus infection) Mother Cervical cancer HIV (human immunodeficiency virus infection) Social History Household Members Other:: , works as [employer], 1 son 14 yo son Housing: House Alcohol intake: never Patient Tobacco Use Status: Never used Tobacco e-Cigarette/Vaping Use: Never Used service: No Current occupational status: employed 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 Current occupational exposures/hazards: No Cognitive needs: No Hearing needs: No Vision needs: Yes Review of Systems Const All systems reviewed & are unremarkable except as noted in HPI and below Neuro Reports paresthesias (neuropathy) Physical Exam Vital Signs: Last Vital Signs Pulse 91 03/12/24 08:29 BP 120/77 03/12/24 08:29 BMI result Body Mass Index 36.0 Pleasant 43-year-old male alert and oriented no acute distress Anicteric Cardiovascular,Feb regular rhythm Lungs clear to auscultation bilaterally no wheezes rales or rhonchi Abdomen positive bowel sounds soft nontender Extremities no edema clubbing or cyanosis Const General: cooperative, healthy appearing, comfortable and no acute distress Orientation/consciousness: patient oriented x3 Limitations: no limitations Cardio Rate: regular rate (Feb) Rhythm: regular rhythm Heart sounds: S1 normal heart sound present and S2 normal heart sound present GI Palpation (GI): Soft to palpation and nontender Auscultation: normal bowel sounds Neuro General: patient oriented x3 Extrem General: Yes full ROM Assessment & Plan Assessment & Plan (1) Encounter for screening colonoscopy: Comment: Discussed procedure, rare risks need for escort Medications to be held or Code(s): Z12.11 - Encounter for screening for malignant neoplasm of colon Category: Medical Plan Index screening MG prep Ozempic- Fridays- stop 1 wk omit metformin- glipizide day before as well as no diabetes medication morning of procedure Orders: Orders Colonoscopy - GI Use Only Today Z12.11 - Encounter for screening for malignant neoplasm of colon Medications: New bisacodyl (Dulcolax (bisacodyl)) Day before procedure @ 12 noon Take 4 tablets by mouth followed by large glass of water 20 mg (4 x 5 mg) PO ONCE 1 day PRN 4 tabs 0RF colonoscopy prep Z12.11 - Encounter for screening for malignant neoplasm of colon polyethylene glycol 3350 (Miralax) Take as directed by mouth the day before your procedure. 238 grams PO ONCE 1 day PRN 238 grams 0RF laxative effect Patient Instructions: Index screening MG prep hold Ozempic-1 week Omit metformin and glipizide day before procedure as well as no diabetes medication morning of- Coding Level of Care Code New Pt Level 3 (28298) Diagnoses Encounter for screening colonoscopy Z12.11 Time Spent (min) 30
[2024-03-12 08:29] VITALS: BP 120/77; PULSE 91; BMI 36.0
== END 2024-03-12 09:51 | disposition home or self-care (01) ==
PROVIDERS: PCP Internal Medicine; Visit Provider Physician Assistant
DX: Z12.11 Encounter for screening for malignant neoplasm of colon (principal); Z01.818 Encounter for other preprocedural examination
CPT/HCPCS: 99203

== ENCOUNTER → 2024-03-12 08:06 | Outpatient (BNVA) | payer OTHER, SELFPAY | PROVIDERS: PCP Internal Medicine; Visit Provider Physician Assistant ==

== ENCOUNTER 2024-04-21 12:50 | Outpatient (AMB) | payer OTHER, SELFPAY ==
[2024-04-21 12:55] VITALS: BP 110/76; PULSE 88; O2SAT 95; BMI 35.4
--- NOTE | 2024-04-21 12:55 | MHC.PC.OV ---
Vital Signs 04/21/24 12:55 Height 5 ft 7 in Weight 226 lb BMI 35.4 BP 110/76 Blood Pressure Location Lt brachial Position Sitting Pulse 88 Pulse Source Pulse Oximeter Pulse Oximetry (%) 95 Oxygen Delivery Method Room Air Intake Visit Reasons: 3 month follow up Intake Note: Pt is here today for 3 months follow up visit on DM. Allergies No Known Allergies Allergy (Verified 03/12/24 08:27) Medication List - Last Reconciled 04/21/24 by Rosita Cho MD atorvastatin 20 mg PO BEDTIME 90 days bisacodyl (Dulcolax (bisacodyl)) 20 mg (4 x 5 mg) PO ONCE PRN 1 day blood pressure test kit-large As directed blood sugar diagnostic (FreeStyle Lite Strips) DX: E11.9, test blood sugar once a day in AM before eating, 90 days blood-glucose meter (FreeStyle Lite Meter kit) DX: E11.9, test blood sugar once a day in AM before eating, duration 999 days duloxetine 60 mg PO DAILY glipizide 5 mg PO BID lancets (Assure Jose Plus) DX: E11.65. Use once a day to test blood sugars, 90 day supply lancets (FreeStyle Lancets) As directed lisinopril 10 mg PO DAILY 90 days metformin 850 mg PO BID 90 days polyethylene glycol 3350 (Miralax) 238 grams PO ONCE PRN 1 day semaglutide (Ozempic) 0.5 mg (0.736 mL) subcut QWEEK Tobacco use date assessed: 04/21/24 Dental Screening Dental Screen Date: 02/06/24 HPI 3 month follow up HPI Details Patient presents for the follow-up of type 2 diabetes hypertension hyperlipidemia. He lost 25 lb in the last 3 months since increasing the dose of Ozempic to 0.5 mg. Patient reports fasting glucose between 80 and 100. He denies hypoglycemia. He reports persistent left lower extremity pain starting the buttock radiating to the posterior thigh worse when walking or sitting for a long time. Patient denies any weakness or numbness in extremities, change in bowel or bladder function, lower back pain or injury. 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 Rajeev Lynch, Betty Perez, James Ahn and colleagues, with an educational clay from [employer]. Review of Systems Const All systems reviewed & are unremarkable except as noted in HPI and below Eyes Reports no additional complaints ENT Reports no additional complaints Card Reports no additional complaints Resp Reports no additional complaints GI Reports no additional complaints Reports no additional complaints Physical exam (Primary Care) Vital Signs: Last Vital Signs Pulse 88 04/21/24 12:55 BP 110/76 04/21/24 12:55 Pulse Ox 95 04/21/24 12:55 Oxygen Delivery Method Room Air 04/21/24 12:55 BMI result Body Mass Index 35.4 Tobacco/Smoking Status: Tobacco use Status Tobacco use date assessed 04/21/24 04/21/24 13:10 Patient Tobacco Use Status Never used Tobacco 04/21/24 12:55 e-Cigarette/Vaping Use Never Used 04/21/24 12:55 Thrive Assessment: Date of Thrive Assessment Date Thrive assessed 12/31/23 04/21/24 12:55 Eyes General: appearance normal, both eyes and all related structures Neck Neck: Yes supple Resp Effort & Inspection: normal respiratory effort Auscultation: clear to auscultation bilaterally Cardio Rhythm: regular rhythm Heart sounds: S1 normal heart sound present and S2 normal heart sound present GI Inspection: Yes normal to inspection Palpation (GI): Soft to palpation Percussion: Yes normal to percussion Auscultation: normal bowel sounds Assessment and Plan Assessment & Plan (1) Sciatica: Code(s): M54.30 - Sciatica, unspecified side Plan: Referred to physical therapy (2) DM type 2 (diabetes mellitus, type 2): Code(s): E11.9 - Type 2 diabetes mellitus without complications Plan: A1c will be checked today and in 3 months. ADA diet regular physical activity discussed with the patient he was advised to stop taking glipizide continue metformin and Ozempic (3) Hypertension: Code(s): I10 - Essential (primary) hypertension Qualifiers: Hypertension type: primary hypertension Qualified Code(s): I10 - Essential (primary) hypertension Plan: Continue current medications (4) Morbid obesity with BMI of 40.0-44.9, adult: Code(s): E66.01 - Morbid (severe) obesity due to excess calories; Z68.41 - Body mass index [BMI] 40.0-44.9, adult Plan: Continue weight loss (5) Hyperlipidemia: Code(s): E78.5 - Hyperlipidemia, unspecified Plan: Continue statin check lipid profile in 3 months Orders: Orders Comprehensive Met. Panel Today E11.9 - Type 2 diabetes mellitus without complications Microalbumin, Random (w Creat) 3 Months E11.9 - Type 2 diabetes mellitus without complications, E66.01 - Morbid (severe) obesity due to excess calories, E78.5 - Hyperlipidemia, unspecified, I10 - Essential (primary) hypertension, Z68.41 - Body mass index [BMI] 40.0-44.9, adult Hemoglobin A1c Today E11.9 - Type 2 diabetes mellitus without complications PT Evaluation and Treatment Today E11.9 - Type 2 diabetes mellitus without complications, M54.30 - Sciatica, unspecified side Hemoglobin A1c 3 Months E11.9 - Type 2 diabetes mellitus without complications, E66.01 - Morbid (severe) obesity due to excess calories, E78.5 - Hyperlipidemia, unspecified, I10 - Essential (primary) hypertension, Z68.41 - Body mass index [BMI] 40.0-44.9, adult Comprehensive [place]. Panel Fast 3 Months E11.9 - Type 2 diabetes mellitus without complications, E66.01 - Morbid (severe) obesity due to excess calories, E78.5 - Hyperlipidemia, unspecified, I10 - Essential (primary) hypertension, Z68.41 - Body mass index [BMI] 40.0-44.9, adult Lipid Panel 3 Months E11.9 - Type 2 diabetes mellitus without complications, E66.01 - Morbid (severe) obesity due to excess calories, E78.5 - Hyperlipidemia, unspecified, I10 - Essential (primary) hypertension, Z68.41 - Body mass index [BMI] 40.0-44.9, adult Medications: Discontinued glipizide Discontinued Reason: Doctor's Order 5 mg PO BID 180 tabs 3RF Coding Level of Care Code Est Pt Level 4 (49602) Complex EM visit Add On G2211 Diagnoses Sciatica M54.30 DM type 2 (diabetes mellitus, type 2) E11.9 Primary hypertension I10 Hypertension type: primary hypertension Morbid obesity with BMI of 40.0-44.9, adult E66.01; Z68.41 Hyperlipidemia E78.5
== END 2024-04-21 13:48 | disposition home or self-care (01) ==
PROVIDERS: PCP Internal Medicine; Visit Provider Internal Medicine
DX: E11.69 Type 2 diabetes mellitus with other specified complication (principal); E66.01 Morbid (severe) obesity due to excess calories; Z68.41 Body mass index [BMI] 40.0-44.9, adult; E78.5 Hyperlipidemia, unspecified; M54.30 Sciatica, unspecified side; I10 Essential (primary) hypertension
CPT/HCPCS: 99214; G2211

== ENCOUNTER 2024-07-15 06:23 | Day surgery (SDC) | payer OTHER, SELFPAY ==
[2024-07-14 06:51] VITALS: BMI 35.4
[2024-07-15 06:33] VITALS: BMI 33.5
--- NOTE | 2024-07-15 06:36 | MHC.SHP ---
Pre-Procedural Eval Section A - 24 Hr Update-Section A only Date of Service: 07/15/24 Section B - Complete if H&P > 30 days Chief Complaint: Encounter for screening for malignant neoplasm of Relevant Family History (Specify if Yes): No Relevant Social History: None Present Medications: see Short Stay Collaborative assessment Medical History: Significant History ( Paronychia Retinal hemorrhage Neuropathy in diabetes Obesity, Class II, BMI 35-39.9) History of Previous Operations: Relevant previous surgery/procedure and date(s) (eye surg) Allergies: Allergies Allergy/AdvReac Type Severity Reaction Status Date / Time No Known Allergies Allergy Verified 03/12/24 08:27 Review of Systems Sugical H&P ROS: Negative: Constitution, Cardiovascular, Respiratory, Neurological, Psychiatric, Hem-Onc, Allergic/Immunologic, Gastrointestinal, Genitourinary, Musculoskeletal, Integumentary, Endocrine and Eyes/Ears/Nose/Throat Exam Surgical H&P Exam: Normal: HEENT, Normal: Heart, Normal: Lungs, Normal: Extremities, Normal: Abdomen, Normal: Skin and Normal: Neurological Plan Diagnosis/Plan: Unchanged I have reviewed the history and physical and performed a pertinent physical examination on my patient. No changes have occurred unless specified. Time Spent With Patient Time: Total time managing care of this patient today ____ minutes.
[2024-07-15 07:04] VITALS: BP 114/81; PULSE 82; RESP 15; TEMP 36.2; O2SAT 99
[2024-07-15] MEDS: Lactated Ringers 1,000 ML 50 ML IVCONT (07:06)
[2024-07-15 07:11] LABS: Glucose, Whole Blood 95 mg/dL (60-115)
--- NOTE | 2024-07-15 07:17 | HO.ANESPROP2 ---
[facility] Active Problems Active Problems: All Active Problems Sciatica (Acute) Encounter for screening colonoscopy (Acute) Hyperlipidemia (Acute) DM type 2 (diabetes mellitus, type 2) (Acute) Morbid obesity with BMI of 40.0-44.9, adult (Acute) Elevated LDL cholesterol level (Acute) Hypertension (Acute) Normal physical exam (Acute) Chronic pain (Acute) Erectile dysfunction (Acute) Adult general medical exam (Acute) Screening for prostate cancer (Acute) Laboratory examination ordered as part of a routine general medical examination (Acute) Screening for STD (sexually transmitted disease) (Acute) Obesity, Class II, BMI 35-39.9 (Acute) Neuropathy in diabetes (Acute) Retinal hemorrhage (Acute) Paronychia (Acute) Past Medical History Medical History Elevated cholesterol HTN (hypertension) Diabetes Paronychia Retinal hemorrhage Neuropathy in diabetes Obesity, Class II, BMI 35-39.9 Family History Family History Father HIV (human immunodeficiency virus infection) Mother Cervical cancer HIV (human immunodeficiency virus infection) Surgical History Surgical History History of eye surgery History of Problems with Anesthesia: No Social History Social History Household Members Other:: , works as [employer], 1 son 14 yo son Housing: House Alcohol intake: never Patient Tobacco Use Status: Never used Tobacco e-Cigarette/Vaping Use: Never Used Use of substances other than those prescribed or required for medical reasons: No Are you DNR?: No Advance Directives: No Advance Directives Information Provided: Yes Recently lost weight without trying: No service: No Current occupational status: employed 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 Current occupational exposures/hazards: No Cognitive needs: No Hearing needs: No Vision needs: Yes Meds Allergies Allergy/AdvReac Type Severity Reaction Status Date / Time No Known Allergies Allergy Verified 03/12/24 08:27 Active Medications: Current Medications Lactated Ringer's (Lr) 1,000 mls @ 50 mls/hr IVCONT .Q20H CHRIS Last Admin: 07/15/24 07:06 Dose: 50 mls/hr Home Medications ?Medication ?Instructions ?Recorded ?Confirmed ?Last Taken ?Type lancets 28 gauge (FreeStyle 08/14/23 07/15/24 Unknown History Lancets) Exam Height,Weight and Vital Signs: Height 5 ft 7 in Weight 97.069 kg Last Vital Signs Temp 97.2 F 07/15/24 07:04 Pulse 82 07/15/24 07:04 Resp 15 07/15/24 07:04 BP 114/81 07/15/24 07:04 Pulse Ox 99 07/15/24 07:04 O2 Del Method Room Air 07/15/24 07:04 Pertinent Lab Results Pertinent Lab Results: Laboratory Tests 07/15/24 07:01 POC Glucose 95 Airway Mallampati Class: III TM Dist: >3cm Neck ROM: Full Loose/Missing/Broken Teeth: Yes (upper incisor missing) Heart: RRR Lungs: CTA Assessment and Plan Assessment Anesthesia Assessment: Anesthesia Plan Discussed and Chart Reviewed Final Anesthetic Review History of Problems with Anesthesia: No NPO: Yes ASA Class: II Final Preanesthetic Review: Meds/Allgs Chart Reviewed, Consent Obtained/Reviewed and Anes Risks/Benef Reviewed Patient Risk: Low Procedure Risk: Low Anesthetic Plan Anesthetic Plan: MAC: Disposition: Standard PACU
--- NOTE | 2024-07-15 07:38 | P.OPN-COLO_ITS ---
Colonoscopy Operative Note Operative Note Date of Service: 07/15/24 Narrative: Operative Information Procedure Description: Colonoscopy Indication: screening Anesthesia: MAC COLONOSCOPY Instrument: Olympus variable stiffness pediatric scope 190L Colonoscopy Monitoring: Vital signs and clinical assessment, continuous EKG monitoring, Pulse oximetry, Carbon Dioxide monitoring and blood pressure monitoring were done throughout the procedure. Colon withdrawal time was 10 minutes. Procedure: The patient was placed in the left lateral decubitis position and pre-procedure medications were administered. After a digital rectal examination of the ano-rectum, the video colonoscope was inserted into the rectum and advanced through the colon to the cecum/TI. The colonoscope was slowly withdrawn in a retrograde panoramic fashion and the colon mucosa was carefully examined including a retroflexed view of the rectum. Findings and interventions are described below. Procedure Difficulty: moderate Findings: Terminal Ileum-not seen Cecum:not seen due to poor prep Ascending Colon: poorly seen Transverse Colon -normal Descending Colon:normal Sigmoid Colon: normal Rectum: Retroflexion not doen due to prep Anorectum - normal Intervention: none Colon preparation: [place] Bowel Preparation Scale Right colon; 0 Transverse colon: 1 Left colon; 1 (0 = Unprepared colon segment with mucosa not seen due to solid stool that cannot be cleared. 1 = Portion of mucosa of the colon segment seen, but other areas of the colon segment not well seen due to staining, residual stool and/or opaque liquid. 2 = Minor amount of residual staining, small fragments of stool and/or opaque liquid, but mucosa of colon segment seen well. 3 = Entire mucosa of colon segment seen well with no residual staining, small fragments of stool or opaque liquid) Impression and Post Procedure Diagnosis: poor prep Plan: High fiber diet leaflet Avoid straining at stool, epsom salts and sitz bath, anusol supps or cream Repeat Colonoscopy in 3-6 months or earlier if clinically indicated Above findings were reviewed with the patient and relevant handouts were provided if indicated.
[2024-07-15 08:04] VITALS: BP 101/67; PULSE 83; RESP 18; TEMP 36.1; O2SAT 100
[2024-07-15 08:19] VITALS: BP 106/80; PULSE 83; RESP 18; TEMP 36.6; O2SAT 100
== END 2024-07-15 08:41 | disposition home or self-care (01) ==
PROVIDERS: PCP Internal Medicine; Visit Provider Internal Medicine Gastroenterology
PROC: 0DJD8ZZ Inspection of Lower Intestinal Tract, Via Natural or Artificial Opening Endoscopic (ICD-10-PCS; CPT 45378; principal; 2024-07-15 07:30)
DX: Z12.11 Encounter for screening for malignant neoplasm of colon (principal); E11.40 Type 2 diabetes mellitus with diabetic neuropathy, unspecified; E66.9 Obesity, unspecified; Z68.36 Body mass index [BMI] 36.0-36.9, adult; Z79.84 Long term (current) use of oral hypoglycemic drugs; Z79.85 Long-term (current) use of injectable non-insulin antidiabetic drugs; Z79.899 Other long term (current) drug therapy; Z98.890 Other specified postprocedural states
CPT/HCPCS: 45378; 82947; J2704

== ENCOUNTER → 2024-07-15 06:23 | Outpatient (BNV) | payer OTHER, SELFPAY | PROVIDERS: PCP Internal Medicine; Visit Provider Internal Medicine Gastroenterology | DX: Z12.11 Encounter for screening for malignant neoplasm of colon (principal) | CPT/HCPCS: 45378 ==

== ENCOUNTER 2024-07-25 09:26 | Outpatient (REF) | payer OTHER, SELFPAY ==
[2024-07-25 14:12] LABS: Alanine Aminotransferase 18 U/L (0-40); Albumin Level 4.3 g/dL (3.5-5.0); Alkaline Phosphatase 60 U/L (39-117); Anion Gap 12 (12-20); Aspartate Amino Transferase 17 U/L (5-37); Bilirubin Total 0.6 mg/dL (0.0-1.0); Blood Urea Nitrogen 11 mg/dL (9-16); Carbon Dioxide 30 mmol/L (22-29); Chloride 101 mmol/L (96-108); Cholesterol 112 mg/dL (<200); Estimated Glomerular Filt Rate > 60; Glucose Fasting 91 mg/dL (60-99); HDL Cholesterol 40 mg/dL (>40); LDL Cholesterol Calculated 62 mg/dL (<100); Potassium 4.2 mmol/L (3.3-5.1); Sodium 139 mmol/L (135-145); Total Protein 7.8 g/dL (6.5-8.0); Triglycerides 53 mg/dL (<150)
[2024-07-25 14:33] LABS: Estimated Average Glucose 123 mg/dL; Hemoglobin A1c % 5.9 % (<6.0)
[2024-07-25 14:41] LABS: Microalbum/Creatinine Ratio Ur 5.8 ug/mg cr (<30)
== END 2024-07-25 09:27 | disposition home or self-care (01) ==
LOC: HO.HMGCLDS 09:26
PROVIDERS: PCP Internal Medicine; Visit Provider Internal Medicine
DX: E11.9 Type 2 diabetes mellitus without complications (principal); E78.5 Hyperlipidemia, unspecified; E66.01 Morbid (severe) obesity due to excess calories; Z68.41 Body mass index [BMI] 40.0-44.9, adult; I10 Essential (primary) hypertension
CPT/HCPCS: 36415; 80053; 80061; 82043; 82570; 83036

== ENCOUNTER 2024-07-28 09:15 | Outpatient (AMB) | payer OTHER, SELFPAY ==
[2024-07-28 09:17] VITALS: BP 124/82; PULSE 90; O2SAT 99; BMI 33.2
--- NOTE | 2024-07-28 09:17 | MHC.PC.OV ---
Vital Signs 07/28/24 09:17 Height 5 ft 7 in Weight 212 lb BMI 33.2 BP 124/82 Blood Pressure Location Lt brachial Position Sitting Pulse 90 Pulse Source Pulse Oximeter Pulse Oximetry (%) 99 Oxygen Delivery Method Room Air Intake Visit Reasons: 3 month follow up Intake Note: Pt is here today for 3 months follow up visit. Allergies No Known Allergies Allergy (Verified 07/28/24 09:18) Medication List - Last Reconciled 07/28/24 by Rosita Cho MD atorvastatin 20 mg PO BEDTIME 90 days blood pressure test kit-large As directed blood sugar diagnostic (FreeStyle Lite Strips) DX: E11.9, test blood sugar once a day in AM before eating, 90 days blood-glucose meter (FreeStyle Lite Meter kit) DX: E11.9, test blood sugar once a day in AM before eating, duration 999 days duloxetine 60 mg PO DAILY lancets (Assure Jose Plus) DX: E11.65. Use once a day to test blood sugars, 90 day supply lancets (FreeStyle Lancets) As directed lisinopril 10 mg PO DAILY 90 days metformin 850 mg PO BID 90 days semaglutide (Ozempic) 0.5 mg (0.736 mL) subcut QWEEK sodium,potassium,mag sulfates 17.5-3.13-1.6 gram (Suprep Bowel Prep Kit) DILUTE; drink full amount early evening before AND next morning at least 2 hr before procedure; follow w 960 mL water PO Tobacco use date assessed: 07/28/24 Dental Screening Dental Screen Date: 02/06/24 HPI 3 month follow up HPI Details Patient presents for the follow-up on hypertension hyperlipidemia type 2 diabetes. [facility] Medical History Elevated cholesterol HTN (hypertension) Diabetes Paronychia Retinal hemorrhage Neuropathy in diabetes Obesity, Class II, BMI 35-39.9 Surgical History History of eye surgery Family History Father HIV (human immunodeficiency virus infection) Mother Cervical cancer HIV (human immunodeficiency virus infection) Social History Household Members Other:: , works as [employer], 1 son 14 yo son Housing: House Alcohol intake: never Patient Tobacco Use Status: Never used Tobacco e-Cigarette/Vaping Use: Never Used service: No Current occupational status: employed 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 1. Little interest or pleasure in doing things: not at all 2. Feeling down, depressed, or hopeless: not at all 3. Trouble falling or staying asleep, or sleeping too much: not at all 4. Feeling tired or having little energy: not at all 5. Poor appetite or overeating: not at all 6. Feeling bad about yourself - or that you are a failure or have let yourself or your family down: not at all 7. Trouble concentrating on things, such as reading the newspaper or watching television: not at all 8. Moving or speaking so slowly that other people could have noticed. Or the opposite - being so fidgety or restless that you have been moving around a lot more than usual: not at all 9. Thoughts that you would be better off or of hurting yourself in some way: not at all Total score: 0 Depression Screening Interpretation: Negative Depression Screening Done: Yes 83291 - PHQ-9 Billing: Yes Source: Developed by Drs. Rajeev Lynch, Betty Perez, James Ahn and colleagues, with an educational clay from [employer]. Thrive Questionnaire Date Thrive assessed: 07/25/24 I am a: Patient What is your living situation today?: I have a steady place to live Within the past 12 months, did the food you bought not last and you didn't have the money to get more?: Never true Within the past 12 months, did you worry whether your food would run out before you got money to buy more?: Never true Do you have trouble paying for medicines?: No Do you have trouble getting transportation to medical appointments?: No Do you have trouble paying your heating and electricity bill?: No Do you have trouble taking care of your child, family member or friend?: No Do you have trouble with day-to-day activities such as bathing, preparing meals, shopping, managing finances, etc.?: No Are you currently unemployed and looking for a job?: No Are you interested in more education?: No Please select the resources that you would like help with: None Currently or been in a relationship where the following occur: No concerns reported THRIVE Score: 0 AUDIT C Alcohol Use Questionnaire (AUDIT-C) 1. How often do you have a drink containing alcohol?: Never 2. How many drinks containing alcohol do you have on a typical day when you are drinking?: 1 or 2 3. How often do you have six or more drinks on one occasion?: Never Total Score: 0 LINH-7 AMB Questionnaire LINH-7 Date LINH - 7 assessed: 07/28/24 Feeling nervous, anxious, or on edge: 0 = Not at all Not being able to stop or control worryin = Not at all Worrying too much about different things: 0 = Not at all Trouble relaxin = Not at all Being so restless that it is hard to sit still: 0 = Not at all Becoming easily annoyed or irritable: 0 = Not at all Feeling afraid as if something awful might happen: 0 = Not at all Total LINH-7 score (0-4 normal; 5-9 mild; 10-14 moderate; 15-21 severe): 0 Source: Developed by Drs. Rajeev Lynch, Betty Perez, James Ahn and colleagues, with an educational clay from [employer]. LINH-7 Assessment Billing LINH-7 Assessment Tool: LINH-7 Assessment 39444 Review of Systems Const All systems reviewed & are unremarkable except as noted in HPI and below Eyes Reports no additional complaints ENT Reports no additional complaints Card Reports no additional complaints Resp Reports no additional complaints GI Reports no additional complaints Reports no additional complaints Physical exam (Primary Care) Vital Signs: Last Vital Signs Pulse 90 07/28/24 09:17 BP 124/82 07/28/24 09:17 Pulse Ox 99 07/28/24 09:17 Oxygen Delivery Method Room Air 07/28/24 09:17 BMI result Body Mass Index 33.2 Tobacco/Smoking Status: Tobacco use Status Tobacco use date assessed 07/28/24 07/28/24 09:21 Patient Tobacco Use Status Never used Tobacco 07/28/24 09:21 e-Cigarette/Vaping Use Never Used 07/28/24 09:21 PHQ-9: PHQ-9 Score PHQ-9: Total score 0 07/28/24 09:21 Depression Screening Interpretation: Negative Thrive Assessment: Date of Thrive Assessment Date Thrive assessed 07/25/24 07/28/24 09:21 Currently or been in a relationship where the following occur: No concerns reported Const General: no acute distress HENMT Ears: hearing grossly normal bilaterally Neck Neck: Yes supple Resp Effort & Inspection: normal respiratory effort Auscultation: clear to auscultation bilaterally Cardio Rhythm: regular rhythm Heart sounds: S1 normal heart sound present and S2 normal heart sound present GI Inspection: Yes normal to inspection Palpation (GI): Soft to palpation Percussion: Yes normal to percussion Assessment and Plan Assessment & Plan (1) Obesity, Class II, BMI 35-39.9: Code(s): E66.9 - Obesity, unspecified Plan: Increase physical activity decrease caloric intake discussed with the patient, he lost 50 lb since March of last year (2) DM type 2 (diabetes mellitus, type 2): Code(s): E11.9 - Type 2 diabetes mellitus without complications Plan: A1c is down to 5.9, ADA diet regular exercise discussed with the patient increase Ozempic to 1 mg and continue metformin. Follow-up in 3 months with a fasting labs before (3) Hyperlipidemia: Code(s): E78.5 - Hyperlipidemia, unspecified Plan: Continue atorvastatin (4) Hypertension: Code(s): I10 - Essential (primary) hypertension Qualifiers: Hypertension type: primary hypertension Qualified Code(s): I10 - Essential (primary) hypertension Plan: Continue lisinopril Orders: Orders Comprehensive [place]. Panel Fast 3 Months E11.9 - Type 2 diabetes mellitus without complications, E78.5 - Hyperlipidemia, unspecified, I10 - Essential (primary) hypertension Complete Blood Count Auto Diff 3 Months E11.9 - Type 2 diabetes mellitus without complications, E78.5 - Hyperlipidemia, unspecified, I10 - Essential (primary) hypertension Lipid Panel 3 Months E11.9 - Type 2 diabetes mellitus without complications, E78.5 - Hyperlipidemia, unspecified, I10 - Essential (primary) hypertension Microalbumin, Random (w Creat) 3 Months E11.9 - Type 2 diabetes mellitus without complications, E78.5 - Hyperlipidemia, unspecified, I10 - Essential (primary) hypertension Hemoglobin A1c 3 Months E11.9 - Type 2 diabetes mellitus without complications, E78.5 - Hyperlipidemia, unspecified, I10 - Essential (primary) hypertension Medications: New semaglutide (Ozempic) 1 mg (0.75 mL) subcut QWEEK 9 mL 3RF Discontinued semaglutide (Ozempic) for 4 weeks Discontinued Reason: Doctor's Order 0.5 mg (0.736 mL) subcut QWEEK 9 mL 1RF Coding Level of Care Code Est Pt Level 4 (19350) Diagnoses Obesity, Class II, BMI 35-39.9 E66.9 DM type 2 (diabetes mellitus, type 2) E11.9 Hyperlipidemia E78.5 Primary hypertension I10 Hypertension type: primary hypertension Additional Codes LINH-7 Assessment Billing - LINH-7 Assessment Tool: LINH-7 Assessment 01604 ([id number])
== END 2024-07-28 09:44 | disposition home or self-care (01) ==
PROVIDERS: PCP Internal Medicine; Visit Provider Internal Medicine
DX: E11.69 Type 2 diabetes mellitus with other specified complication (principal); E66.9 Obesity, unspecified; Z68.33 Body mass index [BMI] 33.0-33.9, adult; E78.5 Hyperlipidemia, unspecified; I10 Essential (primary) hypertension
CPT/HCPCS: 99214

== ENCOUNTER 2024-09-10 08:04 | Outpatient (AMB) | payer OTHER, SELFPAY ==
[2024-09-10 08:14] VITALS: BP 126/84; PULSE 122; TEMP 37.1; O2SAT 98
--- NOTE | 2024-09-10 08:14 | MHC.OFFWIV ---
Intake Vital Signs 09/10/24 08:14 Weight 206 lb BP 126/84 Blood Pressure Location Rt brachial Position Sitting Pulse 122 H Pulse Source Pulse Oximeter Temp 98.7 F Temp Source Oral Pulse Oximetry (%) 98 Oxygen Delivery Method Room Air Intake Visit Reasons: EP-body rash Intake Note: Patient here for rash that is all over body, fevers, chills, itchy, burning and painful rash. Patient Tobacco Use Status: Never used Tobacco Allergies No Known Allergies Allergy (Verified 09/10/24 08:23) Do you need a note to return to daycare/school/sports/work: Yes HPI EP-body rash HPI Details This note is constructed using voice recognition software. While every effort has been made to ensure accuracy, can vacuum tester errors may have been included. The patient is a 44 year old male who presents to the clinic today with rash to right-sided chest for the past 2 weeks. He notes the area to be painful, itchy, he does not scratch it. He notes that he is having pain wrapping around from the right side of his chest all the way to the back. He reports chills, subjective fever, but has not actually checked his temperature. [facility] Medical History (Updated 07/28/24 @ 10:08 by Rosita Cho MD) HTN (hypertension) Diabetes Paronychia Retinal hemorrhage Neuropathy in diabetes Obesity, Class II, BMI 35-39.9 Surgical History History of eye surgery Family History Father HIV (human immunodeficiency virus infection) Mother Cervical cancer HIV (human immunodeficiency virus infection) Social History Household Members Other:: , works as [email or web address], 1 son 14 yo son Housing: House Alcohol intake: never Patient Tobacco Use Status: Never used Tobacco e-Cigarette/Vaping Use: Never Used service: No Current occupational status: employed 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 Current occupational exposures/hazards: No Cognitive needs: No Hearing needs: No Vision needs: Yes Review of Systems Const All systems reviewed & are unremarkable except as noted in HPI and below Physical Exam Vital Signs: Last Vital Signs Temp 98.7 F 09/10/24 08:14 Pulse 122 H 09/10/24 08:14 BP 126/84 09/10/24 08:14 Pulse Ox 98 09/10/24 08:14 Oxygen Delivery Method Room Air 09/10/24 08:14 Const General: cooperative, healthy appearing, comfortable, no acute distress and well developed Orientation/consciousness: patient oriented x3 Limitations: no limitations Eyes General: appearance normal, both eyes and all related structures Resp Effort & Inspection: normal respiratory effort and able to speak in complete sentences Skin Other: cluster of vesicular lesions with an erythematous base in dermatome along right side of chest wall. Neuro General: patient oriented x3 Assessment & Plan Assessment & Plan (1) Shingles: Code(s): B02.9 - Zoster without complications Qualifiers: Herpes zoster complications: without complications Qualified Code(s): B02.9 - Zoster without complications Plan: Physical examination consistent with likely shingles, given that the vesicles have not opened or crusted, we will start antiviral therapy. Advised patient to follow up with worsening symptoms or failure to resolve. Plan See above for full details and plan. Medications: New valacyclovir 1,000 mg PO TID 10 days 30 tabs 0RF Coding Level of Care Code Est Pt Level 3 (63960) Diagnoses Herpes zoster without complication B02.9 Herpes zoster complications: without complications
== END 2024-09-10 08:52 | disposition home or self-care (01) ==
PROVIDERS: PCP Internal Medicine; Visit Provider Registered Nurse
DX: B02.9 Zoster without complications (principal)

== ENCOUNTER → 2024-09-10 08:04 | Outpatient (BNVA) | payer OTHER, SELFPAY | PROVIDERS: PCP Internal Medicine; Visit Provider Registered Nurse ==

== ENCOUNTER 2024-10-28 09:21 | Outpatient (AMB) | payer OTHER, SELFPAY ==
--- NOTE | 2024-10-28 09:22 | A.OFFPC_ITS ---
Vital Signs 10/28/24 09:23 Height 5 ft 7 in Weight 204 lb BMI 31.9 BP 118/82 Blood Pressure Location Lt brachial Position Sitting Pulse 90 Pulse Source Pulse Oximeter Pulse Oximetry (%) 98 Oxygen Delivery Method Room Air Intake Visit Reasons: Follow up on DM Intake Note: Pt is here today for a follow up visit on DM. Allergies No Known Allergies Allergy (Verified 10/28/24 09:24) Medication List - Last Reconciled 10/28/24 by Rosita Cho MD atorvastatin 20 mg PO BEDTIME 90 days blood pressure test kit-large As directed blood sugar diagnostic (FreeStyle Lite Strips) DX: E11.9, test blood sugar once a day in AM before eating, 90 days blood-glucose meter (FreeStyle Lite Meter kit) DX: E11.9, test blood sugar once a day in AM before eating, duration 999 days duloxetine 60 mg PO DAILY lancets (Assure Jose Plus) DX: E11.65. Use once a day to test blood sugars, 90 day supply lancets (FreeStyle Lancets) As directed lisinopril 10 mg PO DAILY 90 days metformin 850 mg PO BID 90 days semaglutide (Ozempic) 1 mg (0.75 mL) subcut QWEEK sodium,potassium,mag sulfates 17.5-3.13-1.6 gram (Suprep Bowel Prep Kit) DILUTE; drink full amount early evening before AND next morning at least 2 hr before procedure; follow w 960 mL water PO valacyclovir 1,000 mg PO TID 10 days Tobacco use date assessed: 10/28/24 Dental Screening Dental Screen Date: 02/06/24 HPI Follow up on DM HPI Details Pt presents for f/u DM 2, hyperlipid, hypertension stable on current medications. Patient lost 50 lb since last year. 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 Current occupational exposures/hazards: No Cognitive needs: No Hearing needs: No Vision needs: Yes Questionnaire Thrive Questionnaire Date Thrive assessed: 07/25/24 I am a: Patient What is your living situation today?: I have a steady place to live Within the past 12 months, did the food you bought not last and you didn't have the money to get more?: Never true Within the past 12 months, did you worry whether your food would run out before you got money to buy more?: Never true Do you have trouble paying for medicines?: No Do you have trouble getting transportation to medical appointments?: No Do you have trouble paying your heating and electricity bill?: No Do you have trouble taking care of your child, family member or friend?: No Do you have trouble with day-to-day activities such as bathing, preparing meals, shopping, managing finances, etc.?: No Are you currently unemployed and looking for a job?: No Are you interested in more education?: No Please select the resources that you would like help with: None Currently or been in a relationship where the following occur: No concerns reported THRIVE Score: 0 LINH-7 AMB Questionnaire LINH-7 Date LINH - 7 assessed: 07/28/24 Source: Developed by Drs. Rajeev Lynch, Betty Perez, James Ahn and colleagues, with an educational clay from [employer]. Review of Systems Const All systems reviewed & are unremarkable except as noted in HPI and below Eyes Reports no additional complaints ENT Reports no additional complaints Card Reports no additional complaints Resp Reports no additional complaints GI Reports no additional complaints Reports no additional complaints Physical exam (Primary Care) Vital Signs: Last Vital Signs Pulse 90 10/28/24 09:23 BP 118/82 10/28/24 09:23 Pulse Ox 98 10/28/24 09:23 Oxygen Delivery Method Room Air 10/28/24 09:23 BMI result Body Mass Index 31.9 Tobacco/Smoking Status: Tobacco use Status Tobacco use date assessed 10/28/24 10/28/24 09:28 Patient Tobacco Use Status Never used Tobacco 10/28/24 09:28 e-Cigarette/Vaping Use Never Used 10/28/24 09:28 Thrive Assessment: Date of Thrive Assessment Date Thrive assessed 07/25/24 10/28/24 09:28 Currently or been in a relationship where the following occur: No concerns reported Const General: no acute distress HENMT Head: Yes normal to inspection General nose exam: Normal external nose present Face and sinus: Yes normal facial exam Mouth: Normal oral and palatal mucosa present Throat: Yes posterior oropharynx normal Neck Neck: Yes supple Resp Effort & Inspection: normal respiratory effort Auscultation: clear to auscultation bilaterally Cardio Rhythm: regular rhythm Heart sounds: S1 normal heart sound present and S2 normal heart sound present GI Inspection: Yes normal to inspection Palpation (GI): Soft to palpation Percussion: Yes normal to percussion Auscultation: normal bowel sounds Coding Level of Care Code Est Pt Level 3 (96484) Diagnoses Primary hypertension I10 Hypertension type: primary hypertension Morbid obesity with BMI of 40.0-44.9, adult E66.01; Z68.41 DM type 2 (diabetes mellitus, type 2) E11.9 Hyperlipidemia E78.5 Assessment & Plan Assessment & Plan (1) Hypertension: Code(s): I10 - Essential (primary) hypertension Category: Medical Qualifiers: Hypertension type: primary hypertension Qualified Code(s): I10 - Essential (primary) hypertension Plan: Continue Lisinopril (2) Morbid obesity with BMI of 40.0-44.9, adult: Comment: Patient lost 50 lb from 11/2023 till 10/2024 Code(s): E66.01 - Morbid (severe) obesity due to excess calories; Z68.41 - Body mass index [BMI] 40.0-44.9, adult Category: Medical Plan: Continue Ozempic decrease caloric intake and regular physical activity (3) DM type 2 (diabetes mellitus, type 2): Code(s): E11.9 - Type 2 diabetes mellitus without complications Category: Medical Plan: A1c was 5.9 in July. Patient will have fasting blood work today. Continue current medication ADA diet return for physical in 6 months with a fasting labs before (4) Hyperlipidemia: Code(s): E78.5 - Hyperlipidemia, unspecified Category: Medical Plan: Continue statin Orders: Orders Comprehensive [place]. Panel Fast Today E11.9 - Type 2 diabetes mellitus without complications, E66.01 - Morbid (severe) obesity due to excess calories, E78.5 - Hyperlipidemia, unspecified, I10 - Essential (primary) hypertension, Z68.41 - Body mass index [BMI] 40.0-44.9, adult Lipid Panel Today E11.9 - Type 2 diabetes mellitus without complications, E66.01 - Morbid (severe) obesity due to excess calories, E78.5 - Hyperlipidemia, unspecified, I10 - Essential (primary) hypertension, Z68.41 - Body mass index [BMI] 40.0-44.9, adult Hemoglobin A1c Today E11.9 - Type 2 diabetes mellitus without complications, E66.01 - Morbid (severe) obesity due to excess calories, E78.5 - Hyperlipidemia, unspecified, I10 - Essential (primary) hypertension, Z68.41 - Body mass index [BMI] 40.0-44.9, adult Complete Blood Count Auto Diff Today E11.9 - Type 2 diabetes mellitus without complications, E66.01 - Morbid (severe) obesity due to excess calories, E78.5 - Hyperlipidemia, unspecified, I10 - Essential (primary) hypertension, Z68.41 - Body mass index [BMI] 40.0-44.9, adult Comprehensive [place]. Panel Fast 6 Months E11.9 - Type 2 diabetes mellitus without complications, E78.5 - Hyperlipidemia, unspecified, I10 - Essential (primary) hypertension Hemoglobin A1c 6 Months E11.9 - Type 2 diabetes mellitus without complications, E78.5 - Hyperlipidemia, unspecified, I10 - Essential (primary) hypertension Microalbumin, Random (w Creat) Today E11.9 - Type 2 diabetes mellitus without complications, E66.01 - Morbid (severe) obesity due to excess calories, E78.5 - Hyperlipidemia, unspecified, I10 - Essential (primary) hypertension, Z68.41 - Body mass index [BMI] 40.0-44.9, adult Complete Blood Count Auto Diff 6 Months E11.9 - Type 2 diabetes mellitus without complications, E78.5 - Hyperlipidemia, unspecified, I10 - Essential (primary) hypertension Lipid Panel 6 Months E11.9 - Type 2 diabetes mellitus without complications, E78.5 - Hyperlipidemia, unspecified, I10 - Essential (primary) hypertension Microalbumin, Random (w Creat) 6 Months E11.9 - Type 2 diabetes mellitus without complications, E78.5 - Hyperlipidemia, unspecified, I10 - Essential (primary) hypertension
[2024-10-28 09:23] VITALS: BP 118/82; PULSE 90; O2SAT 98; BMI 31.9
== END 2024-10-28 11:06 | disposition home or self-care (01) ==
PROVIDERS: PCP Internal Medicine; Visit Provider Internal Medicine
DX: I10 Essential (primary) hypertension (principal); E66.01 Morbid (severe) obesity due to excess calories; Z68.41 Body mass index [BMI] 40.0-44.9, adult; E11.9 Type 2 diabetes mellitus without complications; E78.5 Hyperlipidemia, unspecified

== ENCOUNTER 2024-10-28 09:21 | Outpatient (REF) | payer OTHER, SELFPAY ==
[2024-10-28 13:02] LABS: MANUAL DIFF FLAG NO
[2024-10-28 13:11] LABS: Basophils Percent Auto 0.6 % (0-2); Eosinophils Absolute Auto 0.2 X10*3/uL (0.0-0.4); Eosinophils Percent Auto 2.8 % (0-4); Hematocrit 37.2 % (42.0-52.0); Hemoglobin 12.6 g/dl (14.0-18.0); Imm Gran Abs Auto 0.01 X10*3/uL (0.00-0.03); Imm Gran Pct Auto 0.2 % (0.0-0.4); Lymphocytes Absolute Auto 2.5 X10*3/uL (1.2-4.9); Lymphocytes Percent Auto 39.4 % (20-40); Mean Corpuscular HGB Conc 33.9 g/dl (31.0-36.0); Mean Corpuscular Hemoglobin 29.5 pg (27.0-33.0); Mean Corpuscular Volume 87.1 fL (80.0-98.0); Mean Platelet Volume 10.2 fL (9.4-12.4); Monocytes Absolute Auto 0.6 X10*3/uL (0.1-1.2); Monocytes Percent Auto 8.7 % (2-11); Neutrophils Absolute Auto 3.1 x10*3/uL (2.0-8.3); Neutrophils Percent Auto 48.3 % (45-73); Platelet Count 312 X10*3/uL (160-400); Red Blood Count 4.27 X10*6/uL (4.60-5.80); Red Cell Distribution Width 13.8 % (11.0-16.0); White Blood Count 6.4 X10*3/uL (4.8-10.8)
[2024-10-28 13:26] LABS: Alanine Aminotransferase 22 U/L (0-40); Albumin Level 4.4 g/dL (3.5-5.0); Alkaline Phosphatase 52 U/L (39-117); Anion Gap 13 (12-20); Aspartate Amino Transferase 22 U/L (5-37); Bilirubin Total 0.5 mg/dL (0.0-1.0); Blood Urea Nitrogen 10 mg/dL (9-16); Calcium 9.7 mg/dL (8.4-10.2); Carbon Dioxide 28 mmol/L (22-29); Chloride 103 mmol/L (96-108); Cholesterol 106 mg/dL (<200); Estimated Glomerular Filt Rate > 60; Glucose Fasting 116 mg/dL (60-99); HDL Cholesterol 43 mg/dL (>40); LDL Cholesterol Calculated 54 mg/dL (<100); Potassium 3.9 mmol/L (3.3-5.1); Sodium 140 mmol/L (135-145); Triglycerides 49 mg/dL (<150)
[2024-10-28 13:36] LABS: Estimated Average Glucose 103 mg/dL; Hemoglobin A1C 106.6437 umol/L; Hemoglobin A1c % 5.2 % (<6.0); Total Hemoglobin (HGBA1C) 3186.7915 umol/L
[2024-10-28 14:04] LABS: Creatinine Urine 169.14 mg/dL; Microalbum/Creatinine Ratio Ur 5.3 ug/mg cr (<30)
== END 2024-10-28 09:22 | disposition home or self-care (01) ==
LOC: HO.HMGCLDS 09:21
PROVIDERS: PCP Internal Medicine; Visit Provider Internal Medicine
DX: E11.9 Type 2 diabetes mellitus without complications (principal); I10 Essential (primary) hypertension; E78.5 Hyperlipidemia, unspecified; E66.01 Morbid (severe) obesity due to excess calories; Z68.41 Body mass index [BMI] 40.0-44.9, adult
CPT/HCPCS: 36415; 80053; 80061; 82043; 82570; 83036; 85025

== ENCOUNTER 2025-01-22 08:19 | Outpatient (REF) | payer OTHER, SELFPAY ==
--- OUTSIDE RECORDS SUMMARY | 2025-01-22 08:39 | XMS_ITS | Clinical Summary ---
Author Organization [facility] ity Address [address] [place] [address] Care Team Providers Care Wood Fence Erector Name Role Phone Unavailable Primary Care Provider Unavailabl e Surgical History Surgery Date Site/Laterality Comments OTHER SURGICAL HISTORY PROCEDURE: DENIES PREVIOUS SURGERY Medical History Medical History Date Comments Positive PPD, treated DX:Positiv e PPD, treated Family History Relation Name Status Comments Brother 1 Alive Brother 2 Alive Father hiv Mother hiv, cervical c a Social History Tobacco Use Types Packs/Day Years Used Date Smoking Tobacco: Never Alcohol Use Standard Drinks/Week Comments No 0 (1 standard drink = 0.6 oz pur e alcohol) Sex and Gender Information Value Date Recorded Sex Assigned at Not on file Legal Sex Male 7:27 AM EST Gender Identity Not on file Sexual Orientation Not on file Obstetrics History Plan of Treatment Health Maintenance Due Date Last Done Comments DTaP,Tdap,and Td Vaccines (1 - Tdap) 1998 Hepatitis B Vaccines (1 of 3 - 19+ 3-dose series) 1998 COVID-19 Vaccine (2023-2 5 season) 2024 Influenza Vaccine (#1) 2024 HIB Vaccines Aged Out No longer eligi ble based on patient's age to complete this topic HPV Vaccines Aged Out No longer eligi ble based on patient's age to complete this topic Hepatitis A Vaccines Aged Out No long er eligible based on patient's age to complete this topic IPV Vaccines Aged Out No longer eligi ble based on patient's age to complete this topic MMR Vaccines Aged Out No longer eligi ble based on patient's age to complete this topic Meningococcal ACWY Vaccine Aged Out N o longer eligible based on patient's age to complete this topic Meningococcal B Vacine Aged Out No lo nger eligible based on patient's age to complete this topic Pneumococcal Vaccine: Pediat rics (0 to 5 Years) and At-Risk Patients (6 to 64 Years) Aged Out No longer eligible b ased on patient's age to complete this topic RSV Immunization Patients Un sabino 20 months Aged Out No longer eligible b ased on patient's age to complete this topic Varicella Vaccines Aged Out No longer eligible based on patient's age to complete this topic
[2025-01-22 10:41] LABS: MANUAL DIFF FLAG NO
[2025-01-22 10:55] LABS: Basophils Percent Auto 0.6 % (0-2); Eosinophils Absolute Auto 0.2 X10*3/uL (0.0-0.4); Eosinophils Percent Auto 3.5 % (0-4); Hematocrit 37.3 % (42.0-52.0); Hemoglobin 12.7 g/dl (14.0-18.0); Imm Gran Abs Auto 0.01 X10*3/uL (0.00-0.03); Imm Gran Pct Auto 0.2 % (0.0-0.4); Lymphocytes Absolute Auto 2.5 X10*3/uL (1.2-4.9); Lymphocytes Percent Auto 47.2 % (20-40); Mean Corpuscular Hemoglobin 29.1 pg (27.0-33.0); Mean Corpuscular Volume 85.4 fL (80.0-98.0); Monocytes Absolute Auto 0.4 X10*3/uL (0.1-1.2); Monocytes Percent Auto 7.5 % (2-11); Neutrophils Absolute Auto 2.1 x10*3/uL (2.0-8.3); Platelet Count 298 X10*3/uL (160-400); Red Blood Count 4.37 X10*6/uL (4.60-5.80); Red Cell Distribution Width 12.7 % (11.0-16.0); White Blood Count 5.2 X10*3/uL (4.8-10.8)
[2025-01-22 11:14] LABS: Estimated Average Glucose 114 mg/dL; Hemoglobin A1C 108.9589 umol/L; Hemoglobin A1c % 5.6 % (<6.0); Total Hemoglobin (HGBA1C) 2885.9106 umol/L
[2025-01-22 11:31] LABS: Alanine Aminotransferase 22 U/L (0-40); Alkaline Phosphatase 55 U/L (39-117); Anion Gap 13 (12-20); Aspartate Amino Transferase 22 U/L (5-37); Bilirubin Total 0.3 mg/dL (0.0-1.0); Blood Urea Nitrogen 10 mg/dL (9-16); Calcium 9.3 mg/dL (8.4-10.2); Carbon Dioxide 27 mmol/L (22-29); Chloride 106 mmol/L (96-108); Cholesterol 90 mg/dL (<200); Estimated Glomerular Filt Rate > 60; Glucose Fasting 89 mg/dL (60-99); HDL Cholesterol 40 mg/dL (>40); LDL Cholesterol Calculated 46 mg/dL (<100); Potassium 4.4 mmol/L (3.3-5.1); Sodium 142 mmol/L (135-145); Total Protein 7.4 g/dL (6.5-8.0); Triglycerides 22 mg/dL (<150)
[2025-01-22 12:08] LABS: Microalbum/Creatinine Ratio Ur 8.8 ug/mg cr (<30)
== END 2025-01-22 08:20 | disposition home or self-care (01) ==
LOC: HO.HMGCLDS 08:19
PROVIDERS: PCP Internal Medicine; Visit Provider Internal Medicine
DX: E78.5 Hyperlipidemia, unspecified (principal); E11.9 Type 2 diabetes mellitus without complications; I10 Essential (primary) hypertension
CPT/HCPCS: 36415; 80053; 80061; 82043; 82570; 83036; 85025

== ENCOUNTER 2025-01-23 11:05 | Outpatient (AMB) | payer OTHER, SELFPAY ==
[2025-01-23 11:18] VITALS: BP 114/72; PULSE 96; RESP 18; TEMP 37.1; O2SAT 97; BMI 30.5
--- NOTE | 2025-01-23 11:18 | A.OFFPC_ITS ---
Vital Signs 01/23/25 11:18 Height 5 ft 7 in Weight 195 lb BMI 30.5 BP 114/72 Blood Pressure Location Rt brachial Position Sitting Respiration 18 Pulse 96 Pulse Source Pulse Oximeter Temp 98.7 F Temp Source Oral Pulse Oximetry (%) 97 Oxygen Delivery Method Room Air Intake Visit Reasons: 3M Follow Up Intake Note: Pt is here today for 3 months follow up visit. Allergies No Known Allergies Allergy (Verified 01/23/25 11:55) Medication List - Last Reconciled 01/23/25 by Rosita Cho MD atorvastatin 20 mg PO BEDTIME 90 days blood pressure test kit-large As directed blood sugar diagnostic (FreeStyle Lite Strips) DX: E11.9, test blood sugar once a day in AM before eating, 90 days blood-glucose meter (FreeStyle Lite Meter kit) DX: E11.9, test blood sugar once a day in AM before eating, duration 999 days duloxetine 60 mg PO DAILY lancets (Assure Jose Plus) DX: E11.65. Use once a day to test blood sugars, 90 day supply lancets (FreeStyle Lancets) As directed lisinopril 10 mg PO DAILY 90 days metformin 850 mg PO BID 90 days semaglutide (Ozempic) 1 mg (0.75 mL) subcut QWEEK sodium,potassium,mag sulfates 17.5-3.13-1.6 gram (Suprep Bowel Prep Kit) DILUTE; drink full amount early evening before AND next morning at least 2 hr before procedure; follow w 960 mL water PO valacyclovir 1,000 mg PO TID 10 days Tobacco use date assessed: 01/23/25 Dental Screening Dental Screen Date: 01/23/25 Did you have a dental visit in the last 12 months?: No Did you have a dental problem in the last 6 months where you did not have access to dental care?: Yes Was dental information given to patient?: Yes HPI 3M Follow Up HPI Details Patient presents for the follow-up on hypertension hyperlipidemia type 2 diabetes controlled on current medications [facility] Medical History (Updated 01/23/25 @ 12:34 by Rosita hCo MD) HTN (hypertension) Diabetes Paronychia Retinal hemorrhage Obesity, Class II, BMI 35-39.9 Surgical History History of eye surgery Family History Father HIV (human immunodeficiency virus infection) Mother Cervical cancer HIV (human immunodeficiency virus infection) Social History Household Members Other:: , works as [employer], 1 son 14 yo son Housing: House Alcohol intake: never Patient Tobacco Use Status: Never used Tobacco e-Cigarette/Vaping Use: Never Used service: No Current occupational status: employed 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 1. Little interest or pleasure in doing things: not at all 2. Feeling down, depressed, or hopeless: not at all 3. Trouble falling or staying asleep, or sleeping too much: not at all 4. Feeling tired or having little energy: not at all 5. Poor appetite or overeating: not at all 6. Feeling bad about yourself - or that you are a failure or have let yourself or your family down: not at all 7. Trouble concentrating on things, such as reading the newspaper or watching television: not at all 8. Moving or speaking so slowly that other people could have noticed. Or the opposite - being so fidgety or restless that you have been moving around a lot more than usual: not at all 9. Thoughts that you would be better off or of hurting yourself in some way: not at all Total score: 0 Depression Screening Interpretation: Negative Depression Screening Done: Yes 46466 - PHQ-9 Billing: Yes Source: Developed by Drs. Rajeev Lynch, Betty Perez, James Ahn and colleagues, with an educational clay from [email or web address]. Thrive Questionnaire Date Thrive assessed: 01/23/25 I am a: Patient What is your living situation today?: I have a steady place to live Within the past 12 months, did the food you bought not last and you didn't have the money to get more?: Never true Within the past 12 months, did you worry whether your food would run out before you got money to buy more?: Never true Do you have trouble paying for medicines?: No Do you have trouble getting transportation to medical appointments?: No Do you have trouble paying your heating and electricity bill?: No Do you have trouble taking care of your child, family member or friend?: No Do you have trouble with day-to-day activities such as bathing, preparing meals, shopping, managing finances, etc.?: No Are you currently unemployed and looking for a job?: Yes Are you interested in more education?: No Please select the resources that you would like help with: None Currently or been in a relationship where the following occur: No concerns reported THRIVE Score: 0 AUDIT C Alcohol Use Questionnaire (AUDIT-C) 1. How often do you have a drink containing alcohol?: Never 3. How often do you have six or more drinks on one occasion?: Never Total Score: 0 LINH-7 AMB Questionnaire LINH-7 Date LINH - 7 assessed: 01/23/25 Feeling nervous, anxious, or on edge: 0 = Not at all Not being able to stop or control worryin = Not at all Worrying too much about different things: 0 = Not at all Trouble relaxin = Not at all Being so restless that it is hard to sit still: 0 = Not at all Becoming easily annoyed or irritable: 0 = Not at all Feeling afraid as if something awful might happen: 0 = Not at all Total LINH-7 score (0-4 normal; 5-9 mild; 10-14 moderate; 15-21 severe): 0 Source: Developed by Drs. Rajeev Lynch, Betty Perez, James Ahn and colleagues, with an educational clay from [email or web address]. LINH-7 Assessment Billing LINH-7 Assessment Tool: LINH-7 Assessment 31097 Physical exam (Primary Care) Vital Signs: Last Vital Signs Temp 98.7 F 01/23/25 11:18 Pulse 96 01/23/25 11:18 Resp 18 01/23/25 11:18 BP 114/72 01/23/25 11:18 Pulse Ox 97 01/23/25 11:18 Oxygen Delivery Method Room Air 01/23/25 11:18 BMI result Body Mass Index 30.5 Tobacco/Smoking Status: Tobacco use Status Tobacco use date assessed 01/23/25 01/23/25 12:00 Patient Tobacco Use Status Never used Tobacco 01/23/25 12:00 e-Cigarette/Vaping Use Never Used 01/23/25 11:18 PHQ-9: PHQ-9 Score PHQ-9: Total score 0 01/23/25 12:20 Depression Screening Interpretation: Negative Thrive Assessment: Date of Thrive Assessment Date Thrive assessed 01/23/25 01/23/25 12:01 Currently or been in a relationship where the following occur: No concerns reported Const General: no acute distress HENMT Head: Yes normal to inspection Ears: hearing grossly normal bilaterally Neck Neck: Yes no lymphadenopathy and Yes supple Resp Effort & Inspection: normal respiratory effort Auscultation: clear to auscultation bilaterally Cardio Rhythm: regular rhythm Heart sounds: S1 normal heart sound present and S2 normal heart sound present GI Inspection: Yes normal to inspection Palpation (GI): Soft to palpation Percussion: Yes normal to percussion Auscultation: normal bowel sounds Coding Level of Care Code Est Pt Level 4 (15763) Diagnoses Primary hypertension I10 Hypertension type: primary hypertension Morbid obesity with BMI of 40.0-44.9, adult E66.01; Z68.41 DM type 2 (diabetes mellitus, type 2) E11.9 Additional Codes LINH-7 Assessment Billing - LINH-7 Assessment Tool: LINH-7 Assessment 40604 ([id number]) PHQ-9 - 35095 - PHQ-9 Billing: Yes ([id number]) Assessment & Plan Assessment & Plan (1) Hypertension: Code(s): I10 - Essential (primary) hypertension Category: Medical Qualifiers: Hypertension type: primary hypertension Qualified Code(s): I10 - Essential (primary) hypertension Plan: Continue medication (2) Morbid obesity with BMI of 40.0-44.9, adult: Comment: Patient lost 50 lb from 11/2023 till 10/2024 Code(s): E66.01 - Morbid (severe) obesity due to excess calories; Z68.41 - Body mass index [BMI] 40.0-44.9, adult Category: Medical Plan: Decrease caloric intake increase physical activity continue Ozempic (3) DM type 2 (diabetes mellitus, type 2): Comment: x 10 yrs Code(s): E11.9 - Type 2 diabetes mellitus without complications Category: Medical Plan: A1c is 5.9. Continue ADA diet, increase physical activity continue current medications follow-up in 6 months with a fasting labs before Orders: Orders Comprehensive [place]. Panel Fast 7 Months E11.9 - Type 2 diabetes mellitus without complications, E66.01 - Morbid (severe) obesity due to excess calories, I10 - Essential (primary) hypertension, Z68.41 - Body mass index [BMI] 40.0- 44.9, adult Hemoglobin A1c 7 Months E11.9 - Type 2 diabetes mellitus without complications, E66.01 - Morbid (severe) obesity due to excess calories, I10 - Essential (primary) hypertension, Z68.41 - Body mass index [BMI] 40.0-44.9, adult Lipid Panel 7 Months E11.9 - Type 2 diabetes mellitus without complications, E66.01 - Morbid (severe) obesity due to excess calories, I10 - Essential (primary) hypertension, Z68.41 - Body mass index [BMI] 40.0-44.9, adult Complete Blood Count Auto Diff 7 Months E11.9 - Type 2 diabetes mellitus without complications, E66.01 - Morbid (severe) obesity due to excess calories, I10 - Essential (primary) hypertension, Z68.41 - Body mass index [BMI] 40.0- 44.9, adult Microalbumin, Random (w Creat) 7 Months E11.9 - Type 2 diabetes mellitus without complications, E66.01 - Morbid (severe) obesity due to excess calories, I10 - Essential (primary) hypertension, Z68.41 - Body mass index [BMI] 40.0- 44.9, adult Medications: New 2 semaglutide (Ozempic) 1 mg (0.75 mL) subcut QWEEK 9 mL 1RF Discontinued semaglutide (Ozempic) Discontinued Reason: Doctor's Order 0.5 mg (0.736 mL) subcut QWEEK 3 mL 3RF
--- OUTSIDE RECORDS SUMMARY | 2025-01-23 12:51 | XMS_ITS | Clinical Summary ---
Author Organization [facility] Address [address] [place] [address] Care Team Providers Care Outreach Coordinator Name Role Phone Unavailable Primary Care Provider [...]
--- OUTSIDE RECORDS SUMMARY | 2025-01-23 12:51 | XMS_ITS | Clinical Summary ---
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 Name Role Phone Patricia Gustafson KIMMY Primary Care Provider [phone] Source Comments PLEASE NOTE, if this patient is a minor, it may be UNLAWFUL to discuss sensitive information that is contained in these records (such as FAMILY PLANNING, MENTAL HEALTH or SUBSTANCE ABUSE) with the minor patient's parent or other person without the patient's specific authorization.[facility] Allergies No known active allergies Medications fluocinonide (LIDEX) 0.05 % gel 0 11/25/2015 Active ketoconazole (NIZORAL) 2 % shampoo 0 11/25/2015 Active dextromethorphan -guaiFENesin (ROBITUSSIN-DM) 15-100 mg/5 mL syrupIndications :Cough Take 10 mL by mouth every 4 (four) hours as needed for cough. 1 Bottle 2 02/16/2016 Active fluticasone (FLOVENT HFA) 110 mcg/actuation inhalerIndicatio ns:Wheezing,Shor tness of breath Inhale 1 Puff into the lungs 2 (two) times daily. 1 Inhaler 0 03/02/2016 Active Active Problems Problem Noted Date Diagnosed Date Obesity 02/16/2016 Positive PPD, treated 02/16/2016 Overview (02/16/2016): As per pt completed Rx for 9 months in 2008. @ Health center in [place], [place]. Keloid 02/16/2016 Overview (02/16/2016): Keloids on post scalp. Follows with derm- Dr. Solorio once a year Cough 02/16/2016 Family History Medical History Relation Name Comments Diabetes Maternal Grandmother Cancer Mother HIV cervical ca Relation Name Status Comments Father Maternal Grandmother Alive Mother HIV Social History Tobacco Use Types Packs/Day Years Used Date Smoking Tobacco: Never Tobacco Cessation:Counseling Given: Yes Alcohol Use Standard Drinks/Week Comments No 0 (1 standard drink = 0.6 oz pur e alcohol) Social Connections Answer Date Recorded Social Connections and Isolation 0 07/13/2019 Financial Resource Strain Answer Date R ecorded Financial Resource Strain 0 2018 Stress Answer Date Recorded Stress 0 07/13/2019 Physical Activity Answer Date Recorded Physical Activity 0 07/13/2019 Food Insecurity Answer Date Recorded Food 0 07/13/2019 Transportation Needs Answer Date Record ed Transportation 0 07/13/2019 Housing Stability Answer Date Recorded Housing 0 07/13/2019 Safety and Environment Answer Date Josiah rded Safety 0 07/13/2019 Utilities Answer Date Recorded Utilities 0 07/13/2019 Employment Answer Date Recorded Employment 0 07/13/2019 Sex and Gender Information Value Date Recorded Sex Assigned at Male 09/20/2017 8:15 AM PDT Legal Sex Male 12:13 PM PST Gender Identity Male 09/20/2017 8:15 AM PDT Sexual Orientation Straight 09/20/2017 8: 15 AM PDT Last Filed Vital Signs Vital Sign Reading Time Taken Comments Blood Pressure 139/85 09/20/2017 9:41 AM EDT Pulse 78 09/20/2017 9:41 AM EDT Temperature 37 ??C (98.6 ??F) 09/20/2017 9:41 AM EDT Respiratory Rate 18 09/20/2017 9:41 AM EDT Oxygen Saturation 97% 09/20/2017 9:41 AM EDT Inhaled Oxygen Concentration - - Weight 128.3 kg (282 lb 14.4 oz) 2015 11:07 AM EDT Height 171.2 cm (5' 7.4 ) 02/16/2016 10 :43 AM EDT Body Mass Index 43.78 02/16/2016 10:43 AM EDT Plan of Treatment Not on file Insurance [employer] Member Subscriber Plan / Payer (Ef fective 2016-Present) Name:Jethro Rincon Relation to Subscriber:Self Name:Jethro Rincon Payer ID:[id number] Group ID:Not on file Type:Indemnity Address: [facility] [address] [place] [address] Care Teams [employer] Electrical [employer]er Relationship Specialty Start Date End Date Patricia Gustafson FNP [address] [place] [address] PCP - General 01/14/19
== END 2025-01-23 12:27 | disposition home or self-care (01) ==
PROVIDERS: PCP Internal Medicine; Visit Provider Internal Medicine
DX: I10 Essential (primary) hypertension (principal); E66.01 Morbid (severe) obesity due to excess calories; Z68.41 Body mass index [BMI] 40.0-44.9, adult; E11.9 Type 2 diabetes mellitus without complications

== ENCOUNTER → 2025-01-23 11:05 | Outpatient (BNVA) | payer OTHER, SELFPAY | PROVIDERS: PCP Internal Medicine; Visit Provider Internal Medicine | DX: I10 Essential (primary) hypertension (principal); E66.01 Morbid (severe) obesity due to excess calories; Z68.41 Body mass index [BMI] 40.0-44.9, adult; E11.9 Type 2 diabetes mellitus without complications | CPT/HCPCS: 96127 ==

== ENCOUNTER 2025-08-27 07:50 | Outpatient (REF) | payer OTHER, SELFPAY ==
[2025-08-27 10:05] LABS: MANUAL DIFF FLAG NO
[2025-08-27 10:10] LABS: Hematocrit 34.6 % (42.0-52.0); Hemoglobin 11.9 g/dl (14.0-18.0); Imm Gran Abs Auto 0.01 X10*3/uL (0.00-0.03); Imm Gran Pct Auto 0.2 % (0.0-0.4); Lymphocytes Absolute Auto 2.7 X10*3/uL (1.2-4.9); Mean Corpuscular HGB Conc 34.4 g/dl (31.0-36.0); Mean Corpuscular Hemoglobin 29.4 pg (27.0-33.0); Mean Corpuscular Volume 85.4 fL (80.0-98.0); NRBC Abs Auto 0.000 X10*3/uL (0.0-0.012); NRBC Pct Auto 0.0 /100WBC (0.0-0.2); Platelet Count 247 X10*3/uL (160-400); Red Blood Count 4.05 X10*6/uL (4.60-5.80); White Blood Count 5.8 X10*3/uL (4.8-10.8)
[2025-08-27 10:21] LABS: Hemoglobin A1C 103.6970 umol/L; Total Hemoglobin (HGBA1C) 3081.9256 umol/L
[2025-08-27 10:23] LABS: Alanine Aminotransferase 14 U/L (0-40); Albumin Level 4.4 g/dL (3.5-5.0); Alkaline Phosphatase 49 U/L (39-117); Anion Gap 10 (12-20); Aspartate Amino Transferase 19 U/L (5-37); Blood Urea Nitrogen 13 mg/dL (9-16); Calcium 9.3 mg/dL (8.4-10.2); Carbon Dioxide 28 mmol/L (22-29); Chloride 104 mmol/L (96-108); Cholesterol 99 mg/dL (<200); Estimated Glomerular Filt Rate > 60; HDL Cholesterol 43 mg/dL (>40); Potassium 4.2 mmol/L (3.3-5.1); Sodium 138 mmol/L (135-145); Total Protein 6.9 g/dL (6.5-8.0); Triglycerides 23 mg/dL (<150)
[2025-08-27 10:43] LABS: Microalbum/Creatinine Ratio Ur 9.9 ug/mg cr (<30)
== END 2025-08-27 07:51 | disposition home or self-care (01) ==
LOC: HO.HMGCLDS 07:50
PROVIDERS: PCP Internal Medicine; Visit Provider Internal Medicine
DX: E11.9 Type 2 diabetes mellitus without complications (principal); E66.01 Morbid (severe) obesity due to excess calories; Z68.41 Body mass index [BMI] 40.0-44.9, adult; I10 Essential (primary) hypertension
CPT/HCPCS: 36415; 80053; 80061; 82043; 82570; 83036; 85025

== ENCOUNTER 2025-08-28 08:49 | Outpatient (AMB) | payer OTHER, SELFPAY ==
[2025-08-28 08:50] VITALS: BP 120/84; PULSE 94; RESP 18; TEMP 36.3; O2SAT 99; BMI 26.6
--- NOTE | 2025-08-28 08:50 | MHC.PC.OV ---
Vital Signs 08/28/25 08:50 Height 5 ft 7 in Weight 170 lb BMI 26.6 BP 120/84 Blood Pressure Location Lt brachial Position Sitting Respiration 18 Pulse 94 Pulse Source Pulse Oximeter Temp 97.4 F Temp Source Oral Pulse Oximetry (%) 99 Oxygen Delivery Method Room Air Intake Visit Reasons: CPE Intake Note: Pt is here today for PE. Allergies No Known Allergies Allergy (Verified 08/28/25 08:53) Medication List - Last Reconciled 08/28/25 by Rosita Cho MD atorvastatin 20 mg PO BEDTIME 90 days blood pressure test kit-large As directed blood sugar diagnostic (FreeStyle Lite Strips) DX: E11.9, test blood sugar once a day in AM before eating, 90 days blood-glucose meter (FreeStyle Lite Meter kit) DX: E11.9, test blood sugar once a day in AM before eating, duration 999 days duloxetine 60 mg PO DAILY lancets (Assure Jose Plus) DX: E11.65. Use once a day to test blood sugars, 90 day supply lancets (FreeStyle Lancets) As directed lisinopril 10 mg PO DAILY 90 days semaglutide (Ozempic) 1 mg (0.75 mL) subcut QWEEK sodium,potassium,mag sulfates 17.5-3.13-1.6 gram (Suprep Bowel Prep Kit) DILUTE; drink full amount early evening before AND next morning at least 2 hr before procedure; follow w 960 mL water PO valacyclovir 1,000 mg PO TID 10 days Tobacco use date assessed: 08/28/25 Dental Screening Dental Screen Date: 01/23/25 HPI CPE HPI Details Patient presents for physical. He lost 80 lb on Ozempic. Patient reports blood glucose readings from 80-100 in the morning. He has been exercising 3 times a week. [facility] Medical History (Updated 08/28/25 @ 09:33 by Rosita Cho MD) Encounter for screening colonoscopy DM type 2 (diabetes mellitus, type 2) Hyperlipidemia HTN (hypertension) Paronychia Retinal hemorrhage Obesity, Class II, BMI 35-39.9 Surgical History History of eye surgery Family History Father HIV (human immunodeficiency virus infection) Mother Cervical cancer HIV (human immunodeficiency virus infection) Social History Household Members Other:: , works as [employer], 1 son 14 yo son Housing: House Alcohol intake: never Patient Tobacco Use Status: Never used Tobacco e-Cigarette/Vaping Use: Never Used service: No Current occupational status: employed 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 1. Little interest or pleasure in doing things: not at all 2. Feeling down, depressed, or hopeless: not at all 3. Trouble falling or staying asleep, or sleeping too much: not at all 4. Feeling tired or having little energy: not at all 5. Poor appetite or overeating: not at all 6. Feeling bad about yourself - or that you are a failure or have let yourself or your family down: not at all 7. Trouble concentrating on things, such as reading the newspaper or watching television: not at all 8. Moving or speaking so slowly that other people could have noticed. Or the opposite - being so fidgety or restless that you have been moving around a lot more than usual: not at all 9. Thoughts that you would be better off or of hurting yourself in some way: not at all Total score: 0 Depression Screening Interpretation: Negative Depression Screening Done: Yes Source: Developed by Drs. Rajeev Lynch, Betty Perez, James Ahn and colleagues, with an educational clay from [employer]. Thrive Questionnaire Date Thrive assessed: 01/23/25 I am a: Patient What is your living situation today?: I have a steady place to live Within the past 12 months, did the food you bought not last and you didn't have the money to get more?: Never true Within the past 12 months, did you worry whether your food would run out before you got money to buy more?: Never true Do you have trouble paying for medicines?: No Do you have trouble getting transportation to medical appointments?: No Do you have trouble paying your heating and electricity bill?: No Do you have trouble taking care of your child, family member or friend?: No Do you have trouble with day-to-day activities such as bathing, preparing meals, shopping, managing finances, etc.?: No Are you currently unemployed and looking for a job?: Yes Are you interested in more education?: No Please select the resources that you would like help with: None Currently or been in a relationship where the following occur: No concerns reported THRIVE Score: 0 LINH-7 AMB Questionnaire LINH-7 Date LINH - 7 assessed: 01/23/25 Feeling nervous, anxious, or on edge: 0 = Not at all Not being able to stop or control worryin = Not at all Worrying too much about different things: 0 = Not at all Trouble relaxin = Not at all Being so restless that it is hard to sit still: 0 = Not at all Becoming easily annoyed or irritable: 0 = Not at all Feeling afraid as if something awful might happen: 0 = Not at all Total LINH-7 score (0-4 normal; 5-9 mild; 10-14 moderate; 15-21 severe): 0 Source: Developed by Drs. Rajeev Lynch, Betty Perez, James Ahn and colleagues, with an educational clay from [employer]. Review of Systems Const All systems reviewed & are unremarkable except as noted in HPI and below Eyes Reports no additional complaints ENT Reports no additional complaints Card Reports no additional complaints Resp Reports no additional complaints GI Reports no additional complaints Reports no additional complaints Physical exam (Primary Care) Vital Signs: Last Vital Signs Temp 97.4 F 08/28/25 08:50 Pulse 94 08/28/25 08:50 Resp 18 08/28/25 08:50 BP 120/84 08/28/25 08:50 Pulse Ox 99 08/28/25 08:50 Oxygen Delivery Method Room Air 08/28/25 08:50 BMI result Body Mass Index 26.6 Tobacco/Smoking Status: Tobacco use Status Tobacco use date assessed 08/28/25 08/28/25 08:59 Patient Tobacco Use Status Never used Tobacco 08/28/25 08:50 e-Cigarette/Vaping Use Never Used 08/28/25 08:50 PHQ-9: PHQ-9 Score PHQ-9: Total score 0 08/28/25 08:59 Depression Screening Interpretation: Negative Thrive Assessment: Date of Thrive Assessment Date Thrive assessed 01/23/25 08/28/25 08:50 Currently or been in a relationship where the following occur: No concerns reported Const General: no acute distress HENMT Head: Yes normal to inspection Face and sinus: Yes normal facial exam Mouth: Normal oral and palatal mucosa present Throat: Yes posterior oropharynx normal Eyes General: appearance normal, both eyes and all related structures Neck Neck: Yes no lymphadenopathy and Yes supple Resp Effort & Inspection: normal respiratory effort Auscultation: clear to auscultation bilaterally Cardio Rhythm: regular rhythm Heart sounds: S1 normal heart sound present and S2 normal heart sound present GI Inspection: Yes normal to inspection Palpation (GI): Soft to palpation Percussion: Yes normal to percussion Auscultation: normal bowel sounds Extrem Other: Diabetic foot exam: skin is intact monofilament and vibration sensation intact bilaterally General: Yes no clubbing, cyanosis or edema Coding Level of Care Code Est Pt Prev Care 40-64y(05274) Diagnoses Primary hypertension I10 Hypertension type: primary hypertension Hyperlipidemia E78.5 Annual physical exam Z00.00 DM type 2 (diabetes mellitus, type 2) E11.9 Assessment & Plan Assessment & Plan (1) Hypertension: Code(s): I10 - Essential (primary) hypertension Category: Medical Qualifiers: Hypertension type: primary hypertension Qualified Code(s): I10 - Essential (primary) hypertension Plan: Continue lisinopril (2) Hyperlipidemia: Code(s): E78.5 - Hyperlipidemia, unspecified Category: Medical Plan: Lipid profile is low. Atorvastatin will be decreased to 10 mg twice a day (3) Annual physical exam: Code(s): Z00.00 - Encounter for general adult medical examination without abnormal findings Category: Medical Plan: Well-balanced diet regular physical activity discussed with the patient for borderline anemia iron studies and B12 level will be checked. Patient will have colonoscopy (4) DM type 2 (diabetes mellitus, type 2): Comment: x 10 yrs Code(s): E11.9 - Type 2 diabetes mellitus without complications Category: Medical Plan: A1c is 5.2, ADA diet regular exercise discussed with the patient he will stop metformin and increase Ozempic to 2 mg weekly. Patient will follow-up in 4 months with a fasting labs before Orders: Orders Vitamin B12 and Folate Today D64.9 - Anemia, unspecified Complete Blood Count Auto Diff 4 Months E11.9 - Type 2 diabetes mellitus without complications, E78.5 - Hyperlipidemia, unspecified, I10 - Essential (primary) hypertension, Z00.00 - Encounter for general adult medical examination without abnormal findings Lipid Panel 4 Months E11.9 - Type 2 diabetes mellitus without complications, E78.5 - Hyperlipidemia, unspecified, I10 - Essential (primary) hypertension, Z00.00 - Encounter for general adult medical examination without abnormal findings IRON PROFILE Today D64.9 - Anemia, unspecified Comprehensive [place]. Panel Fast 4 Months E11.9 - Type 2 diabetes mellitus without complications, E78.5 - Hyperlipidemia, unspecified, I10 - Essential (primary) hypertension, Z00.00 - Encounter for general adult medical examination without abnormal findings Hemoglobin A1c 4 Months E11.9 - Type 2 diabetes mellitus without complications, E78.5 - Hyperlipidemia, unspecified, I10 - Essential (primary) hypertension, Z00.00 - Encounter for general adult medical examination without abnormal findings Microalbumin, Random (w Creat) 4 Months E11.9 - Type 2 diabetes mellitus without complications, E78.5 - Hyperlipidemia, unspecified, I10 - Essential (primary) hypertension, Z00.00 - Encounter for general adult medical examination without abnormal findings Medications: New Ozempic (semaglutide) 2 mg (0.75 mL) subcut QWEEK 9 mL 1RF NS atorvastatin (Lipitor) 10 mg PO DAILY 90 tabs 3RF Discontinued metformin Discontinued Reason: Doctor's Order 850 mg PO BID 90 days 180 tabs 3RF atorvastatin Discontinued Reason: Duplicate 20 mg PO BEDTIME 90 days 90 tabs 3RF semaglutide (Ozempic) Discontinued Reason: Doctor's Order 1 mg (0.75 mL) subcut QWEEK 9 mL 1RF
== END 2025-08-28 09:28 | disposition home or self-care (01) ==
LOC: HO.HMCC 08:50
PROVIDERS: PCP Internal Medicine; Visit Provider Internal Medicine
DX: Z00.00 Encounter for general adult medical examination without abnormal findings (principal); I10 Essential (primary) hypertension; E78.5 Hyperlipidemia, unspecified; E11.69 Type 2 diabetes mellitus with other specified complication

== ENCOUNTER 2025-08-28 08:49 | Outpatient (REF) | payer OTHER, SELFPAY ==
[2025-08-28 13:33] LABS: Iron 92 mcg/dL (45-160); Percent Iron Saturation 33 % (15-50); Total Iron Binding Capacity 278 mcg/dL (228-428); Unsaturated Iron Binding 186 ug/dL
[2025-08-28 13:56] LABS: Folate 6.2 ng/mL (> or = 4.0); Vitamin B12 870 pg/mL (200-900)
== END 2025-08-28 08:50 | disposition home or self-care (01) ==
LOC: HO.HMGCLDS 08:49
PROVIDERS: PCP Internal Medicine; Visit Provider Internal Medicine
DX: Z00.00 Encounter for general adult medical examination without abnormal findings (principal); I10 Essential (primary) hypertension; D64.9 Anemia, unspecified; E78.5 Hyperlipidemia, unspecified; E11.9 Type 2 diabetes mellitus without complications; Z79.899 Other long term (current) drug therapy
CPT/HCPCS: 36415; 82607; 82746; 83540; 96127